=== PATIENT | male | born 1945 | race Caucasian/White ===

== ENCOUNTER 2018-02-10 12:18 | Emergency (ER) | payer OTHER, MEDICARE ==
--- NOTE | 2018-02-10 13:07 | EDPHY ---
H & P Time Seen by Provider: 02/10/18 12:52 HPI/ROS: CHIEF COMPLAINT: Urinary retention, urinary incontinence HISTORY OF PRESENT ILLNESS: Patient is a 73-year-old male who presents emergency department with urinary incontinence. Patient's recent history is he returned from [facility] on 01/29/2018. 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 Patient states that his diarrhea symptoms resolved and he felt better. However, he has continued to have slight urinary incontinence. He states this primarily occurs at night. He is able to urinate when he goes to the bathroom. He has had no dysuria frequency. No hematuria. The patient saw Dr. Barkley from Urology yesterday. The at that time he was told that he had urinary retention. He was sent home. The patient is unaware his current treatment plan for urinary incontinence. He subsequently came to the emergency department for evaluation. Patient has no fevers or chills. No abdominal pain. No nausea or vomiting. Patient states he has a remote history of prostate cancer. Dr. Barkley was made aware yesterday. REVIEW OF SYSTEMS: 10 systems were reveiwed and are negative with the exception of the elements mentioned in the history of present illness. Past Medical/Surgical History: Includes a remote history of prostate cancer, diabetes, gout Smoking Status: Former smoker Physical Exam: 36.8, 160/110, 109, 18, 95% on room air GENERAL: Well-appearing, in no acute distress, alert. HEENT: Eyes normal to inspection, normal pharynx, no signs of dehydration. NECK: Normal, supple. RESPIRATORY: Clear to auscultation bilaterally, no rales, rhonchi or wheezing. CVS: Regular rate and rhythm, no rubs, murmurs, or gallops. ABDOMEN: Soft, nontender, patient has a palpable bladder, no organomegaly. BACK: Normal to inspection, no CVA tenderness. SKIN: Normal color, no rash, warm, dry. No pallor. EXTREMITIES: No pedal edema, no calf tenderness, no Homans sign or cords, no joint swelling. NEURO/PSYCH: Alert and oriented, normal mood and affect, normal motor sensory exam. Constitutional: Initial Vital Signs Temperature (C) 36.8 C 02/10/18 12:19 Heart Rate 109 H 02/10/18 12:19 Respiratory Rate 18 02/10/18 12:19 Blood Pressure 162/110 H 02/10/18 12:19 O2 Sat (%) 95 02/10/18 12:19 O2 Delivery Mode Room Air Allergies/Adverse Reactions: midazolam [From Versed] Allergy (Verified 02/10/18 12:26) Home Medications: Medication Instructions Recorded Allopurinol 02/10/18 Anastrozole 02/10/18 Cephalexin [Keflex (*)] 500 mg PO QID #12 cap 02/10/18 Flomax 0.4 MG (*) 02/10/18 Metformin HCl 02/10/18 Naltrexone 02/10/18 Medical Decision Making ED Course/Re-evaluation: The in the emergency department I discussed possible etiologies with the patient. I answered all his questions. A urinalysis, urine microscopic exam and urine culture were sent. A post void urine revealed 507. Patient was noted to have red cells on his urine studies. Urine culture is pending. Patient will be given Keflex for 3 days. This will treat a possible diagnosis of urinary tract infection causing his symptoms. He understands his close follow-up with Urology. I discussed the results with the patient. I answered all his questions. Patient was given follow-up with Urology. He will return to the emergency department with inability to urinate or worsening incontinence. At this time I do not feel he needs of bladder paced. He is still able to urinate on demand. He has no significant discomfort. Differential Diagnosis: My differential includes but is not limited to urinary retention, incontinence, urinary tract infection, pyelonephritis, renal failure, sphincter dysfunction, prostate cancer, prostate enlargement, bladder cancer, mass - Data Points Laboratory Results: 02/10/18 12:41 Urine Color YELLOW Urine Appearance HAZY Urine pH 6.0 (5.0-7.5) Ur Specific [place] 1.009 (1.002-1.030) Urine Protein NEGATIVE (NEGATIVE) Urine Ketones NEGATIVE (NEGATIVE) Urine Blood NEGATIVE (NEGATIVE) Urine Nitrate NEGATIVE (NEGATIVE) Urine Bilirubin NEGATIVE (NEGATIVE) Urine Urobilinogen NEGATIVE EU EU (0.2-1.0) Ur Leukocyte Esterase NEGATIVE (NEGATIVE) Urine RBC 5-10 /hpf H /hpf (0-3) Urine WBC 1-3 /hpf /hpf (0-3) Ur Epithelial Cells NONE SEEN /lpf /lpf (NONE-1+) Urine Glucose NEGATIVE (NEGATIVE) Departure - Departure Disposition: Home, Routine, Self-Care Clinical Impression: Urinary retention Urinary incontinence Qualifiers: Urinary Incontinence type: unspecified incontinence Qualified Code(s): R32 - Unspecified urinary incontinence Condition: Good Instructions: Urinary Retention in Men (ED), Urinary Incontinence (ED) Additional Instructions: Return with increasing pain, inability urinate, fever, chills or any other concerns. Take your entire course of antibiotics. Referrals: Haley Masterson MD [Medical Doctor] - 5-7 days, call for appt. Prescriptions: Cephalexin [Keflex (*)] 500 mg PO QID #12 cap
[2018-02-10] MEDS ORDERED: CEPHALEXIN 500 MG CAP PO ONE (14:22)
[2018-02-10 14:56] VITALS: BP 165/118
== END 2018-02-10 14:53 | disposition home or self-care (01) ==
PROC: 4A0D7LZ Measurement of Urinary Volume, Via Natural or Artificial Opening (ICD-10-PCS; principal; 2018-02-10)
DX: R33.9 Retention of urine, unspecified (principal); R32 Unspecified urinary incontinence

== ENCOUNTER → 2018-02-21 | Outpatient (CLI) | payer OTHER, MEDICARE ==
[~2018-02-21] MED LIST: IOPAMIDOL (ISOVUE 370) 100 ML BTL IV ONE
== END ==
LOC: FIMAGING 13:26
PROVIDERS: ATTEND Surgery
DX: N32.9 Bladder disorder, unspecified (principal); N13.30 Unspecified hydronephrosis
CPT/HCPCS: 74176; Q9967; 82565-PO

== ENCOUNTER 2018-02-23 21:40 | Emergency (ER) | payer OTHER, MEDICARE ==
--- NOTE | 2018-02-23 22:32 | EDPHY ---
General - History Smoking Status: Former smoker Time Seen by Provider: 02/23/18 22:17 Narrative: CLINICAL IMPRESSION: Clogged Meza catheter ASSESSMENT/PLAN: 73-year-old male with history of prostate cancer presents to the emergency department with Meza catheter problem after he noted urine was not flowing this evening. Patient had catheter placed [address] Cramer. He did not have surgery at that time. He is scheduled to see Dr. Cramer on Monday and was told that his catheter was very difficult to place in that he could expect hematuria. Catheter was irrigated in the ER by ED RN. Patient has good flow of gross hematuria and his leg bag, no lower abdominal or pelvic pain or distention, vital signs stable, no fever. Patient was instructed to follow up with Urology on Monday as previously scheduled, warning signs return to emergency department sooner outlined and discharge. DIFFERENTIAL DX: Differential includes but not limited to clogged Meza catheter, UTI ED PROCEDURES: See lab and/or imaging results below See RN notes for Meza catheter irrigation ED COURSE: Fully catheterization was irrigated by ED RN, now working well, patient with 300 mL of gross hematuria noted in Meaz leg bag. He reports this is what he has been seeing at home and that his urologist is aware and instructed him that this is expected following his difficult catheter placement CHIEF COMPLAINT: Clogged Meza catheter HPI: 73-year-old male with a history of prostate cancer, followed by Dr. Cramer, presents to the emergency department with complaints of a clogged Meza catheter. Patient reports catheter was placed 2 days ago, today he noticed that the catheter was not draining appropriately. He states it was a very difficult catheter placement and he was told by his urologist to expect bloody discharge for many days. He reports no fevers, nausea, vomiting, flank pain. He did not have surgery. He states the catheter was placed due to"urine backing up into the kidneys and elevated creatinine". Meza was irrigated and is now draining appropriately and patient reports he feels much better. He has scheduled to see Dr. Cramer on Monday PAST MEDICAL HISTORY: Prostate cancer, previous bowel resection See triage summary and nurse notes for addition applicable history Pertinent Past Surgical History: Perforated bowel requiring bowel resection in 2010 Family History: Noncontributory Social History: , here with his REVIEW OF SYSTEMS: A full 10 point review of systems was negative except for those mentioned in HPI. PHYSICAL EXAM: General Appearance: Alert, oriented, appropriate, cooperative, NAD, well hydrated, non-toxic appearing, VSS, no hypoxia. Respiratory: There are no retractions, lungs are clear to auscultation. Cardiac: Regular rate and rhythm, no murmurs or gallops. Gastrointestinal: Abdomen is soft, nontender, bowel sounds normal, no masses/ hernia, no rigidity, guarding or focal peritoneal findings. Meza catheter in place with a leg bag. Gross hematuria noted in the back at approximately 250- 300 mL. No swelling or erythema of the urethra or glans. Skin: Warm, dry, no rashes, no nodules on palpation. MEDICAL DECISION MAKING: Patient was seen independently. Secondary supervising physician at time of evaluation was: Dr. Chaves . Diagnosis: Meza catheter problem . New, requires workup Summary: See Assessment and Plan for summary of ED visit Patient Progress: Improved. (Jamie Coughlin) PHYSICIAN DOCUMENTATION: The patient was evaluated and managed by the Physician Waste [employer] Pumper. My co- signature indicates that I have reviewed this chart and I agree with the findings and plan of care as documented. I am the secondary supervising physician. (Rosa Chaves) - Objective Vital Signs: Initial Vital Signs Temperature (C) 37.1 C 02/23/18 21:48 Heart Rate 100 02/23/18 21:48 Respiratory Rate 16 02/23/18 21:48 Blood Pressure 154/100 H 02/23/18 21:48 O2 Sat (%) 90 L 02/23/18 21:48 O2 Delivery Mode Room Air Allergies/Adverse Reactions: midazolam [From Versed] Allergy (Verified 02/10/18 12:26) Home Medications: Medication Instructions Recorded Allopurinol 02/10/18 Anastrozole 02/10/18 Metformin HCl 02/10/18 Naltrexone 02/10/18 Departure - Departure Disposition: Home, Routine, Self-Care Clinical Impression: Meza catheter problem Condition: Good Instructions: Meza Catheter Placement and Care (ED) Additional Instructions: DISCHARGE INSTRUCTIONS FROM YOUR DOCTOR Thank you for visiting our emergency department today. Please keep in mind that discharge from the emergency department does not mean that there is nothing wrong - it simply means that we have not identified an emergency condition that requires further evaluation or treatment in the hospital. You should always plan to follow up with primary care for re-evaluation of your condition in the next 2-3 days. If you have been referred to a specialist, please call as soon as possible (today or tomorrow) to schedule your follow up appointment at the appropriate time. YOUR MEZA CATHETER WAS IRRIGATED TONIGHT WITH SUCCESSFUL REMOVAL OF CLOTTED TISSUE. PLEASE MONITOR SYMPTOMS OVER THE WEEKEND. PLEASE FOLLOW-UP WITH UROLOGY SCHEDULED ON MONDAY. RETURN TO THE ER FOR COMPLICATIONS WITH MEZA CATHETER, INCREASED PELVIC OR ABDOMINAL PAIN, NAUSEA OR VOMITING, FEVER GREATER THAN 100.4, LIGHTHEADEDNESS, SHORTNESS OF BREATH, FAINTING EPISODES, OR ANY OTHER CONCERN. People present with illnesses and injuries in different ways, and it is always possible that we have missed something. You may always return for re-evaluation if symptoms worsen or if they are not improving or if you develop new/different symptoms. Again, thank you for choosing our emergency department. We hope that you feel better. Referrals: Marcos Cramer MD [Primary Care Provider] - 2-3 days, call for appt.
[2018-02-23 23:11] VITALS: BP 122/90
== END 2018-02-23 23:11 | disposition home or self-care (01) ==
PROC: 3E1K78Z Irrigation of Genitourinary Tract using Irrigating Substance, Via Natural or Artificial Opening (ICD-10-PCS; principal; 2018-02-23)
DX: T83.098A Other mechanical complication of other urinary catheter, initial encounter (principal); Y73.2 Prosthetic and other implants, materials and accessory gastroenterology and urology devices associated with adverse incidents

== ENCOUNTER 2018-03-10 14:08 | Inpatient (IN) | payer OTHER, MEDICARE ==
[2018-03-10 14:59] LABS: PLATELET COUNT 273 10^3/uL (150-400)
--- NOTE | 2018-03-10 15:00 | EDPHY ---
HPI/HX/ROS/PE/MDM Narrative: CHIEF COMPLAINT: Fever, weakness, "mental fog" HISTORY OF PRESENT ILLNESS: The patient is a 73 y/o male with a history of diabetes, prostate cancer, and a bowel resection complaining of fever, weakness, and "mental fog" since this morning. Patient has an indwelling nielsen due to prostate enlargement with obstructive hydronephrosis. He is scheduled to undergo a TURP this , 5 days from now. When his returned home at 16:00 yesterday, 23 hours ago, the patient was lethargic and sleeping. This morning when he woke up he had a fever of 101.8 degrees, chills, rapid breathing, and difficulty speaking. He also had one episode of diarrhea, which could be due to taking metformin for the first time in a week. Due to the difficulty speaking and "mental fog" his decided to bring the patient to the emergency department. The patient and his deny any history of cardiac problems. No chest pain, shortness of breath, palpitations, vomiting, headache, lightheadedness. REVIEW OF SYSTEMS: Aside from elements discussed in the HPI, a comprehensive 10-point review of systems was reviewed and is negative. 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 133HR, temp 37.6, 107/79 GENERAL: Slightly confused, well-developed and well-nourished. Slow to answer questions, difficulty telling me his history. HEENT: Atraumatic. Eyes: No icterus, no injection. PERRL, EOMI. Mouth: slightly dry mucous membranes. No erythema or lesions. Neck: supple with no adenopathy or meningismus. LUNGS: Clear to auscultation bilaterally, no wheezes, rhonchi or rales. CARDIAC: Tachycardic, no rubs, murmurs or gallops. ABDOMEN: Soft, nontender, nondistended, bowel sounds normal. BACK: No CVA tenderness. EXTREMITIES: No trauma. No edema. Range of motion is normal throughout. NEURO: Confused, alert and oriented, grossly nonfocal. SKIN: Warm and dry, no rash. PSYCHIATRIC: Normal mentation, no agitation. Portions of this note were transcribed by a medical driver. I personally performed a history, physical exam, medical decision making, and confirmed accuracy of information the transcribed note. ED Course: The patient is a 73 y/o male with a history of diabetes, prostate cancer, and a bowel resection presenting with fever, weakness, and "mental fog" since this morning. On exam the patient is confused and tachycardic. He has an indwelling nielsen. Due to his confusion he is unable to say why he's here. He denies belly or flank pain and has no meningismus. Labs, EKG, and chest x-ray ordered; 1gm PO Tylenol and 600mg PO Motrin administered. I have also discussed plan for admission which the patient and are comfortable with. 1530: I reviewed patient's labs which reveal a WBC of 28.93, lactate of 4.3, and a creatinine of 3.6 which has increased from 1.8 on 02/23/18. 1gm IV Ceftriaxone and IV NS administered per sepsis protocol. 1449: 12-LEAD EKG: Please see the full report in [facility]. My interpretation: Junctional tachycardia with a rate of 118, probable left ventricular hypertrophy, prolonged QT interval. 1547: I consulted with the hospitalist service regarding this patient, Dr. Foy accepts admission of this patient. Sepsis Evaluation: The patient presents to the ED with UTI identified as an acute infection. The patient did have evidence of end-organ dysfunction and met criteria for severe sepsis. This condition was identified by myself at 1509. The patients vital signs are 144/79, 38.0, 28, 117. The patient has a venous lactic acid performed within 3 hours of the identification of severe sepsis which was found to be 4.3. The patient has blood cultures drawn and received ceftriaxone IV, per the severe sepsis treatment protocol. The initial lactate was elevated and rechecked within 6 hours of the identification time of severe sepsis and found to be: 1.8. MDM: Differential diagnosis for fever in adults was considered including but not limited to pneumonia, urinary tract infection, cellulitis, urosepsis, meningitis , encephalitis, viral syndrome, and influenza. - Data Points Imaging Results: CXR: Impression: Poor inspiration. Otherwise, normal chest x-ray. Dictated By: Alvin Atkins MD Imaging: I viewed and interpreted images myself Laboratory Results: Laboratory Results 03/10/18 14:50 03/10/18 14:50 Medications Given: Acetaminophen (Tylenol) 650 mg PO Q4HRS PRN PRN Reason: Pain, Mild/Fever, Can Take PO Stop: 09/06/18 16:20 Last Admin: 03/13/18 18:27 Dose: 650 mg Heparin Sodium (Porcine) (Heparin Sc Injection) 5,000 unit SC Q8 JAYLA Stop: 09/06/18 21:59 Last Admin: 03/13/18 13:38 Dose: 5,000 unit Ertapenem 0.5 gm/ Sodium (Chloride) 50 mls @ 100 mls/hr IV DAILY JAYLA PRN Reason: Protocol Stop: 04/12/18 09:44 Last Admin: 03/13/18 10:11 Dose: 50 mls Insulin Human Lispro (Humalog Lispro) 0 unit SC TIDMEAL JAYLA PRN Reason: Protocol Stop: 09/06/18 17:59 Last Admin: 03/13/18 17:31 Dose: 2 units Miscellaneous Medication (Meth/Meblue/Sod Phos/Psal/Hyos [Uribel Capsule]) 1 each PO BID [facility] Stop: 09/06/18 20:59 Last Admin: 03/13/18 08:30 Dose: 1 tab Ondansetron HCl (Zofran) 4 mg IVP Q4HRS PRN PRN Reason: Nausea/Vomiting, Can't Take PO Stop: 09/06/18 16:20 Last Admin: 03/13/18 07:32 Dose: 4 mg Senna/Docusate Sodium (Senokot-S) 1 - 2 tab PO BID JAYLA PRN Reason: Protocol Stop: 09/08/18 20:59 Last Admin: 03/13/18 08:30 Dose: 2 tab Tamsulosin HCl (Flomax) 0.4 mg PO DAILY [facility] Stop: 09/07/18 08:59 Last Admin: 03/13/18 08:30 Dose: 0.4 mg Discontinued Medications Acetaminophen (Tylenol) 1,000 mg PO EDNOW ONE Stop: 03/10/18 15:12 Last Admin: 03/10/18 15:21 Dose: 1,000 mg Ceftriaxone Sodium/Dextrose (Rocephin 1 Gm (Premix)) 50 mls @ 100 mls/hr IV EDNOW ONE PRN Reason: Protocol Stop: 03/10/18 15:38 Last Admin: 03/10/18 15:20 Dose: 50 mls Sodium Chloride (Ns) 3,100 mls @ 6,200 mls/hr 30 ml/kg infuse over 30 min ( 3100 ml) IV EDNOW ONE PRN Reason: Protocol Stop: 03/10/18 15:38 Last Admin: 03/10/18 15:15 Dose: 3,100 mls Ceftriaxone Sodium/Dextrose (Rocephin 1 Gm (Premix)) 50 mls @ 100 mls/hr IV DAILY JAYLA PRN Reason: Protocol Stop: 04/10/18 08:59 Last Admin: 03/13/18 08:30 Dose: 50 mls Sodium Chloride (Ns) 1,000 mls @ 150 mls/hr IV CONT JAYLA Stop: 03/12/18 23:09 Last Admin: 03/12/18 17:42 Dose: 1,000 mls Levofloxacin/Dextrose (Levaquin 750 Mg (Premix)) 150 mls @ 100 mls/hr IV ONCE ONE PRN Reason: Protocol Stop: 03/11/18 16:47 Last Admin: 03/11/18 15:27 Dose: 150 mls Ibuprofen (Motrin) 600 mg PO EDNOW ONE Stop: 03/10/18 15:12 Last Admin: 03/10/18 15:20 Dose: 600 mg Point of Care Test Results: Chemistry 03/10/18 14:41 POC Glucose 225 mg/dL H mg/dL (70-100) Microbiology Results: MICROBIOLOGY 03/10/18 14:50 Blood Blood Culture - Preliminary Escherichia Coli Esbl 03/10/18 14:50 Urine,Catheterized Urine Culture - Preliminary Escherichia Coli 03/10/18 15:15 Blood Blood Culture - Final Escherichia Coli Esbl 03/10/18 15:15 Blood Blood Panel (PCR) - Final Escherichia Coli General Time Seen by Provider: 03/10/18 14:58 Initial Vital Signs: Initial Vital Signs Temperature (C) 37.6 C 03/10/18 14:23 Heart Rate 133 H 03/10/18 14:23 Respiratory Rate 18 03/10/18 14:23 Blood Pressure 107/79 03/10/18 14:23 O2 Sat (%) 93 03/10/18 14:23 O2 Delivery Mode Room Air O2 (L/minute) 2 Allergies/Adverse Reactions: midazolam [From Versed] Allergy (Verified 03/10/18 14:26) Anxiety/Confusion onion Allergy (Verified 03/10/18 14:26) Home Medications: Medication Instructions Recorded Allopurinol [Allopurinol 100 MG 100 mg PO DAILY 02/10/18 (*)] Anastrozole [Arimidex 1 mg (*)] 0.5 mg PO SUTH 02/10/18 Acetaminophen [Tylenol ES 500 mg 500 mg PO Q4 PRN 03/10/18 (*)] Metformin HCl [Metformin 1000 mg] 1,000 mg PO BIDMEAL 03/10/18 Meth/Meblue/Sod Phos/Psal/Hyos 1 each PO BID 03/10/18 [Uribel Capsule] Tamsulosin HCl [Flomax 0.4 MG (*)] 0.4 mg PO DAILY 03/10/18 Departure - Departure Disposition: [facility]patient Acute Clinical Impression: Severe sepsis, Confusion UTI (urinary tract infection) Qualifiers: Urinary tract infection type: catheter-associated UTI Indwelling urinary catheter type: unspecified Encounter type: initial encounter Qualified Code(s): T83.511A - Infection and inflammatory reaction due to indwelling urethral catheter, initial encounter Condition: Fair Report Scribed for: Odilia Chung Report Scribed by: Claudia Pompa Date of Report: 03/10/18 Time of Report: 15:01
[2018-03-10] MEDS ORDERED: NS 3,100 ML IV ONE (15:09)
[2018-03-10] MEDS ORDERED: IBUPROFEN 600 MG TAB PO ONE ×2 (15:11→15:22)
[2018-03-10] MEDS ORDERED: ACETAMINOPHEN 500 MG TAB PO ONE (15:11)
[2018-03-10] MEDS ORDERED: ACETAMINOPHEN 500 MG TAB ONE (15:22)
[2018-03-10 15:29] LABS: INR 1.25 (0.83-1.16); PROTIME(PATIENT) 15.9 SEC (12.0-15.0)
[2018-03-10] MEDS ORDERED: ONDANSETRON DISINTEGRATING 4 MG TAB PO PRN (16:21)
[2018-03-10] MEDS ORDERED: LIDOCAINE 2% JELLY 20 ML (UROJECT) ONE (17:27)
[2018-03-10] MEDS ORDERED: D50W 25 GM/50 ML SYR IVP PRN (17:54)
--- NOTE | 2018-03-10 18:36 | GHP ---
DATE OF ADMISSION: 03/10/2018 CHIEF COMPLAINT: Fever. HISTORY OF PRESENT ILLNESS: This is a 73-year-old male who several weeks ago started developing what ended up being significant urinary retention due to enlarged prostate. He has been following with Chica Cramer, and a Adams was placed a week ago. He is scheduled for a TURP next week. The initial abdo kim discomfort that started this workup is resolved, but then yesterday started developing fever an d altered mental status, and was sleeping essentially all day. This has worsened, and he presented t o the emergency department. He again denied any significant abdominal pain. No nausea or vomiting. He had decreased p.o. intake. Subjective fevers, feels weak. REVIEW OF SYSTEMS: A 10-point review of systems was obtained and negative. PAST MEDICAL HISTORY: 1. BPH as above. 2. Previous history of prostate cancer. 3. Type 2 diabetes. 4. Gout. MEDICATIONS: Reviewed. SOCIAL HISTORY: No smoking or alcohol. 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 He is . FAMILY HISTORY: Reviewed. Noncontributory. PHYSICAL EXAMINATION: VITAL SIGNS: Afebrile. Blood pressure is 107/78, heart rate initially was 13 0s. Has come down to the upper 90s. Oxygen saturation 94%. GENERAL: The patient is well developed , no apparent distress. HEENT: Nonicteric sclerae. Extraocular muscles intact. Dry mucous membran es. NECK: Supple. No thyromegaly. LUNGS: Good effort. Clear to auscultation bilaterally. CARDI OVASCULAR: Regular rate and rhythm. There is a 2/6 systolic murmur heard best at the right upper st ernal border. ABDOMEN: Positive bowel sounds. Some mild, diffuse tenderness. No rebound or guardi ng. EXTREMITIES: No clubbing, cyanosis, or edema. SKIN: Without rash. Dry, intact. NEUROLOGIC: Alert and oriented x3. Moving all 4 extremities equally. PSYCH: Normal affect. LABS: White blood cell count elevated at 28. Initial lactate was 4.3. It has now come down to 1.8. Chemistry does show an anion gap metabolic acidosis. Creatinine is elevated at 3.6, glucose elevate d to 14. UA is positive for a urinary tract infection. Chest x-ray negative. ASSESSMENT: This is a 73-year-old male presenting with severe sepsis due to urinary tract infection from indwelling Adams catheter. PLAN: 1. Severe sepsis. The patient has already received 3 L of fluid. His lactate has come down. We wi ll continue with hydration. 2. Complicated urinary tract infection. He has not really been on antibiotics. No history of resis tant organisms. We will start with ceftriaxone. We will change the Adams catheter as well. 3. Acute on possibly chronic renal failure. His creatinine early February was 2.0, but was normal in July of last year. There is definitely an element of sepsis that is contributing. We will see wher e his creatinine ends up with hydration. 4. Anion gap acidosis. Probably related to the renal failure and lactic acidosis. 5. Type 2 diabetes. We will start sliding scale and hold metformin due to acute renal failure. 6. Gout. I am going to hold his allopurinol as well. 7. BPH. We will continue his Flomax and Adams catheter. 8. DVT prophylaxis. We will use heparin. /[id number]/MODL
--- NOTE | 2018-03-10 21:01 | CPEKG ---
Test Reason : OPEN Blood Pressure : / mmHG Vent. Rate : 118 BPM Atrial Rate : 000 BPM P-R Int : 188 ms QRS Dur : 095 ms QT Int : 396 ms P-R-T Axes : 000 -06 048 degrees QTc Int : 556 ms Junctional tachycardia Probable left ventricular hypertrophy Prolonged QT interval Confirmed by Gentry Collazo ([id number]) on 03/10/2018 9:00:54 PM Referred By: PHYSICIAN ED Confirmed By:Gentry Collazo
[2018-03-10] MEDS: [UNRECOGNIZED DRUG - OTHER] PO SCH (22:02)
[2018-03-10] MEDS: INSULIN LISPRO 100 UNIT/ML SC SCH (22:03)
[2018-03-11] MEDS: HEPARIN 5,000 UNIT/0.5 ML INJ SC SCH ×4 (00:59→22:00)
[2018-03-11] MEDS: NS 1,000 ML IV SCH ×2 (00:59→13:46)
[2018-03-11 06:48] LABS: PLATELET COUNT 189 10^3/uL (150-400)
[2018-03-11] MEDS: INSULIN LISPRO 100 UNIT/ML SC SCH ×3 (09:24→18:28)
[2018-03-11] MEDS: TAMSULOSIN HCL 0.4 MG CAP PO SCH (09:28)
--- NOTE | 2018-03-11 09:36 | PDMN ---
Medical Necessity Medical necessity: [facility] M160 sepsis, A-3 days: 73 yo w/ nielsen in place due to urinary retention 2nd enlarged prostate, scheduled for TURP next week, presents w/ severe sepsis and TONY. Tachy 105-130, tachypnea w/ RR 22-40, WBC 28, creat 3.6. BC and urine Cx pending. Sepsis protocol started w/ IV antibx, IV fluids. Meets [facility] IP criteria for sepsis w/ hemodynamic instability, elevated creatinine and tachypnea.
--- NOTE | 2018-03-11 13:59 | HOSPPROG ---
Hospitalist Progress Note Assessment/Plan: Severe Sepsis - Febrile with leukocytosis on admission - Initial LA 4.3, downtrended to 1.8 after 30 cc/kg IVF bolus - Source UTI, positive UA on admission - Blood cultures growing GNR, await further speciation - Will continue on Ceftriaxone for now pending culture data - Continue IVF Acute on Chronic Renal Failure - Recent Cr 2.0, but was normal 07/2017 - Etiology unknown, prerenal in setting of sepsis vs. obstructive in setting of BPH - S/p IVF overnight, Cr remains at 3.6 this AM - Will continue IVF overnight - Continue to monitor I/O, Cr, avoid nephrotoxic agents - Renal U/S ordered to further evaluate Complicated UTI - Recent nielsen catheter placement on 02/21 by urology, Dr Cramer - Management of UTI as above - Nielsen replaced last night - Spoke with Urology this morning who had no further recommendations, will let Dr. Cramer know to reschedule TURP that was planned for Anion Gap Acidosis - In setting of sepsis and renal failure T2DM - Holding home Metformin - Continue SSI Gout - Holding allopurinol in setting of ARF BPH - Continue nielsen and Flomax DVT PPx: Heparin Dispo: Pending clinical course Subjective: Patient reports feeling somewhat improved from yesterday Objective: Vital Signs Temp Pulse Resp BP Pulse Ox 38.6 C H 92 40 H 123/67 H 94 03/11/18 08:00 03/11/18 08:00 03/11/18 08:00 03/11/18 08:00 03/11/18 08:00 Laboratory Results 03/11/18 06:20 03/11/18 06:20 03/10/18 03/11/18 03/12/18 05:59 05:59 05:59 Intake Total 7854 Output Total 2650 Balance 5204 PT 15.9 SEC (12.0-15.0) H 03/10/18 14:50 INR 1.25 (0.83-1.16) H 03/10/18 14:50 - Physical Exam Constitutional: uncomfortable Eyes: PERRL Ears, Nose, Mouth, Throat: moist mucous membranes Cardiovascular: regular rate and rhythym Respiratory: no respiratory distress Gastrointestinal: soft, non-tender abdomen Genitourinary: nielsen in urethra Musculoskeletal: generalized weakness Neurologic: AAOx3 Psychiatric: interacting appropriately ICD10 Worksheet Patient Problems: Problems Problem Status Onset Confusion Acute Severe sepsis Acute UTI (urinary tract infection) Acute
[2018-03-11] MEDS: [UNRECOGNIZED DRUG - OTHER] PO SCH ×2 (15:23→22:01)
--- NOTE | 2018-03-11 15:38 | GCON ---
PULMONARY/CRITICAL CARE CONSULTATION DATE OF CONSULTATION: 03/11/2018 REFERRING PHYSICIAN: Rodolfo Rutledge DO REASON FOR REFERRAL: Evaluation and management of gram-negative sepsis with urinary tract infection. HISTORY: The patient is a 73-year-old male who started developing urinary retention due to enlarged prostate. He was seen by Dr. Cramer who placed a Adams about a week ago and scheduled him for a TURP. This improved symptoms, but then yesterday, he started to develop fever and altered mental status. He was brought to the emergency department last night, where he was treated with IV fluids, antibiot ics, and admitted to the ICU. He reports stated he is feeling quite a bit better. He is no longer c onfused and his energy is improved. He had some clots from the Adams catheter. The Adams catheter w as pulled and replaced and now is draining well. PAST MEDICAL HISTORY: 1. BPH. 2. Prior history of prostate cancer. 3. Type 2 diabetes. 4. Gout. MEDICATIONS: Allopurinol, Arimidex, metformin, and Flomax. ALLERGIES: Midazolam. SOCIAL HISTORY: No smoking. The patient denies smoking or alcohol. He recently traveled to [facility] for a dive trip. At this time, he was diagnosed with infection with E coli, as well as amebiasis by a local physician. It is not clear that the diagnosis of any bypasses was supported by direct vis ualization, but rather through local medical techniques. FAMILY HISTORY: Unremarkable. REVIEW OF SYSTEMS: A 10-point review of systems adds nothing to the history of present illness. PHYSICAL EXAMINATION: GENERAL: Patient is awake, alert, and in no acute distress. VITAL SIGNS: Bl ood pressure is 123/67, up from 107/79 at admission. His heart rate is 92, down from 133 at admissio n. His temperature is 38.6. His oxygen saturations are 94% on 3 L. HEENT: Normocephalic and atrau matic. No icterus. NECK: No JVD. Trachea is midline. CHEST: Clear to auscultation. CARDIAC: R egular rate and rhythm without murmur. ABDOMEN: Soft, nontender. Bowel sounds are present. EXTREM ITIES: No clubbing, cyanosis, or edema. NEURO: The patient is awake and alert. He has no gross mo tor or sensory deficits. LABORATORY: Chemistry group is remarkable for a BUN of 38 and creatinine of 3.6. His creatinine was 1.8 two weeks ago and was 1.0 seven months ago. Glucose is 113. White blood count is 24.2, down fr om 28.9 yesterday. INR is 1.2. Lactate is 1.8, down from 4.3. Urinalysis shows 50 to 180 white blo od cells and 50-180 red blood cells with 3+ bacteria. Blood culture and urine culture both growing E coli, sensitivities pending. IMAGING PROCEDURE: Chest x-ray shows no focal infiltrates. Images reviewed by me. ASSESSMENT: 1. Severe sepsis. The patient had an elevated white blood count, fever, delirium, tachycardia, and an elevated lactate. He has responded to intravenous fluids, as well as ceftriaxone and sensitivitie s are pending. 2. Acute renal insufficiency. This is likely due to post obstructive uropathy, in addition to sepsi s/acute tubular necrosis. His urinary catheter became occluded with blood clots today and has been r eplaced, now with good urine flow. 3. History of diabetes. The patient's blood sugars initially were in 200s, but are now in the low 1 00s. 4. History of prostate cancer. RECOMMENDATIONS: 1. Continue sepsis protocol, including IV fluids and ceftriaxone. Consider adding Levaquin for cove rage until sensitivities are back. Infectious Disease and Urology will be consulted. 2. Follow urine output. His Adams catheter may potentially need to be replaced if he develops furth er bleeding. 3. Follow blood sugars, holding metformin for the time being and using sliding scale insulin as need ed. 4. Prophylactic heparin will be given. Increase activity as tolerated. /[id number]/MODL
[2018-03-11] MEDS: ACETAMINOPHEN 325 MG TAB PO PRN ×2 (15:48→23:14)
--- NOTE | 2018-03-11 18:16 | ASMTCMCOM ---
CM Note CM Note Notes: Reviewed chart, spoke with Dr. Rutledge. Pt admitted for a urinary tract infection, urosepsis and confusion following nielsen placement on 02/21/18 for a urinary obstruction. History includes prostate cancer, BPH, bowel resection 02/16/18, diabetes and gout. Pt is and lives with his in [place]. Discharge needs remain unclear at this time. Pt is scheduled for a TURP on 03/15/18. CM will continue to follow for any potential needs. Discharge Plan: To be determined Date Signed: 03/11/2018 06:16 PM Electronically Signed By:Elayne Vásquez RN
[2018-03-12] MEDS: HEPARIN 5,000 UNIT/0.5 ML INJ SC SCH ×3 (05:50→21:29)
[2018-03-12] MEDS: ACETAMINOPHEN 325 MG TAB PO PRN ×3 (07:24→21:27)
[2018-03-12] MEDS: INSULIN LISPRO 100 UNIT/ML SC SCH ×3 (07:56→17:40)
[2018-03-12] MEDS: NS 1,000 ML IV SCH ×2 (08:26→17:42)
[2018-03-12] MEDS: [UNRECOGNIZED DRUG - OTHER] PO SCH ×3 (08:26→21:50)
[2018-03-12] MEDS: TAMSULOSIN HCL 0.4 MG CAP PO SCH (08:27)
[2018-03-12 09:17] LABS: PLATELET COUNT 169 10^3/uL (150-400)
--- NOTE | 2018-03-12 12:19 | HOSPPROG ---
Hospitalist Progress Note Assessment/Plan: Severe Sepsis - Febrile with leukocytosis on admission - Initial LA 4.3, downtrended to 1.8 after 30 cc/kg IVF bolus - Source UTI, positive UA on admission - Blood cultures growing E Coli, await sensitivities - Will continue on Ceftriaxone for now pending culture data - ID consulted this morning - Continue IVF E Coli Bacteremia - Blood cultures positive for GNR, Ecoli - Continue Ceftriaxone for now - ID consulted this AM for further evaluation and management Acute on Chronic Renal Failure - Recent Cr 2.0, but was normal 07/2017 - Etiology unknown, prerenal in setting of sepsis vs. obstructive in setting of BPH - S/p IVF overnight, Cr downtrended to 3.2 this AM - Will continue IVF overnight - Continue to monitor I/O, Cr, avoid nephrotoxic agents - Renal U/S ordered yesterday which showed mild-moderate b/l hydronephrosis which is improved since prior CT - Consulted Urology, they said they will let Dr. Cramer know this AM Complicated UTI - Recent nielsen catheter placement on 02/21 by urology, Dr Cramer - Management of UTI as above - Nielsen replaced last night - Spoke with Urology yesterday who had no further recommendations, will let Dr. Cramer know to reschedule TURP that was planned for Anion Gap Acidosis - In setting of sepsis and renal failure T2DM - Holding home Metformin - Continue SSI Gout - Holding allopurinol in setting of ARF BPH - Continue nielsen and Flomax DVT PPx: Heparin Dispo: Pending clinical course Subjective: Patient reports feeling improved this AM Objective: Vital Signs Temp Pulse Resp BP Pulse Ox 37.4 C 81 16 126/76 H 94 03/12/18 11:52 03/12/18 11:52 03/12/18 11:52 03/12/18 11:52 03/12/18 11:52 Laboratory Results 03/12/18 08:30 03/12/18 05:55 03/11/18 03/12/18 03/13/18 05:59 05:59 05:59 Intake Total 7854 7150 Output Total 2650 5200 Balance 5204 1950 PT 15.9 SEC (12.0-15.0) H 03/10/18 14:50 INR 1.25 (0.83-1.16) H 01/26/19 14:50 - Physical Exam Constitutional: no apparent distress Eyes: PERRL Ears, Nose, Mouth, Throat: moist mucous membranes Cardiovascular: regular rate and rhythym Respiratory: no respiratory distress Gastrointestinal: soft, non-tender abdomen Genitourinary: nielsen in urethra Skin: warm Neurologic: AAOx3 Psychiatric: interacting appropriately ICD10 Worksheet Patient Problems: Problems Problem Status Onset Confusion Acute Severe sepsis Acute UTI (urinary tract infection) Acute
--- NOTE | 2018-03-12 13:51 | PDCONSULT ---
[facility] [employer] Note: Infectious Diseases Consult Note Impression: 73-year-old man with severe sepsis secondary to E coli pyelonephritis complicated by bloodstream infection. His syndrome is likely explained by the invasive E coli infection, with no exam or laboratory abnormalities to suggest a tropical illness underlying his acute presentation. In particular, shows no evidence of malaria infection, leptospirosis, or typhoid fever 3 of the acute life-threatening diseases that could be obtained in a tropical country. 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 1. Severe sepsis; improved 2. E coli bloodstream infection secondary pyelonephritis 3. E coli pyelonephritis secondary to obstructive uropathy 4. BPH underlying 3. 5. Diabetes mellitus, type 2 Plan: 1. Continue ceftriaxone 1 g daily 2. Deferred testing for tropical diseases pending clinical course; no clear syndrome present at this time 3. Discuss potential side effects of ceftriaxone Omar Garza MD Infectious Diseases Chief Complaint: Fever Requesting Provider: Dr. Rutledge Reason for Referral: Consultation was requested by Dr. Rutledge regarding antimicrobial management. HPI: A 73-year-old man presented to the emergency department with 1 day of altered mentation and high fever. He returned from a trip with his to [facility] on January 29 with a were engaged in a diving trip, staying with other divers at a resort with moderate mosquito activity, it [place]. He notes feeling unwell with "my inside being on fire" at the end of his trip and then upon [place] the [place] which was treated initially with a Z-Blade which he brought on the trip with him followed by a course of tinidazole prescribed by his physician [place] the [place]. 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 He notes that even during his time in [facility] he was suffering from bilateral flank pain, and some urinary incontinence. 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 He contacted his surgeon, Dr. Oneill, who ordered a abdominal CT which showed enlarged prostate, bilateral hydronephrosis, and severe diverticular disease. He had a Adams catheter placed to relieve the obstruction approximately 1 week prior to admission, with a planned TURP procedure scheduled for approximately a week later. Upon hospital admission he was found to have severe sepsis with increasing creatinine and an elevated lactate. He has grown E coli in both his urine and his blood. He continues to feel quite poorly in spite of antibiotic therapy. Overall his abdominal symptoms much improved. He notes no arthralgias or myalgias, no rash, no diarrhea, no headache, no jaundice. Travel history: Most recent history of travel to [facility] to 1 of the [facility] for 3 week diving trip from when she returned on January 29. Other international travel was to [facility] in July of 2017. He has traveled overall extensively in the more remote past including having lived in [place] near the [facility] in the 1970s. Past Medical History: BPH, type 2 diabetes treated with metformin, gout Past Surgical History: Sigmoid colectomy 2010 Social History: Lives with his who also travels with him. Does not smoke or drink alcohol. No illicit drug use. Family History: No history of recurrent infections. Allergies: Midazolam Medications: Reviewed in medical record and confirmed with patient. ROS: 10 organ systems reviewed; pertinent positives and negatives listed in the HPI, all other organ systems negative. Physical Exam: VS: Reviewed Gen: No acute distress; Breathing comfortably without exogenous oxygen; Able to speak in complete sentences Eyes: No conjunctival injection; No scleral icterus HENT: No gross deformities Neck: No limitation in range of motion Pulm: Breath sounds clear to the bases bilaterally; No wheeze, rhonchi, or rales CV: Normal S1 and S2; Regular rate and rhythm; No murmurs, rubs, or gallops; No lower extremity edema Abd: Obese; Not distended; hypo-active bowel sounds; Soft; Non-tender Skin: A full skin exam including bilateral upper extremities, bilateral lower extremities to the knees, face, neck, abdomen, chest, and back performed; Skin intact, warm, with no rash MSK: Joints without erythema or edema; No gross limitation in range of motion Ext: No clubbing or cyanosis Neuro: Awake and alert Psych: Normal mood and affect Labs/Imaging: All microbiology testing (culture and non-culture) reviewed in the medical record. Personally reviewed and interpreted the images of the following radiographs: Abdominal CT from February 21 showing bilateral hydronephrosis. Microbiology 03/10/18 15:15 Blood Blood Panel (PCR) - Final Escherichia Coli 03/10/18 14:50 Urine,Catheterized Urine Culture - Final Escherichia Coli 03/10/18 15:15 Blood Blood Culture - Preliminary 03/10/18 15:15 Blood Escherichia Coli 03/10/18 14:50 Blood Blood Culture - Preliminary Escherichia Coli Laboratory Tests 03/10/18 03/11/18 03/11/18 14:50 06:20 06:20 WBC 28.93 H 24.20 H Absolute Neuts (auto) 19.89 H Creatinine 3.6 H 03/12/18 03/12/18 05:55 08:30 WBC 12.67 H Absolute Neuts (auto) 10.43 H Creatinine 3.4 H Antimicrobials: Medications Generic Name Dose Route Start Last Admin Trade Name Freq PRN Reason Stop Dose Admin Ceftriaxone Sodium/Dextrose 50 mls @ 100 mls/hr 03/11/18 09:00 03/12/18 08:49 Rocephin 1 Gm (Premix) IV 04/10/18 08:59 50 mls DAILY JAYLA Protocol Discontinued Medications Generic Name Dose Route Start Last Admin Trade Name Freq PRN Reason Stop Dose Admin Levofloxacin/Dextrose 150 mls @ 100 mls/hr 03/11/18 15:18 03/11/18 15:27 Levaquin 750 Mg (Premix) IV 03/11/18 16:47 150 mls ONCE ONE Protocol Discontinued Medications Generic Name Dose Route Start Last Admin Trade Name Freq PRN Reason Stop Dose Admin Ceftriaxone Sodium/Dextrose 50 mls @ 100 mls/hr 03/10/18 15:09 03/10/18 15:20 Rocephin 1 Gm (Premix) IV 03/10/18 15:38 50 mls EDNOW ONE Protocol Ongoing monitoring for antimicrobial toxicity with: CBC, BMP. Sjwd-do-wmbo time with patient: 65 minutes with >50% of [id number]-wk-vwuw time spent in counseling, patient education, and coordinating care. Counseling provided included the microbiology of urinary tract infection, bloodstream infection, expected time to resolution, natural history without treatment, and side effects of treatment.
--- NOTE | 2018-03-12 17:12 | PDINTPN ---
Employment Consultant Progress Note Assessment/Plan: Assessment: Urosepsis secondary to E coli. Associated with renal obstruction and hydronephrosis from prostate obstruction. Resolving post Adams placement as an outpatient. On ceftriaxone. Id consultation appreciated. Sepsis. Resolving. Status post fluid resuscitation. Never significantly hypotensive. Acute renal failure. BUN and creatinine remain elevated, the latter at 3.6, slightly down from admission. Non-oliguric, with excellent urine output. Renal function is being followed. Constipation: Will add bowel protocol. Associated with anorexia. Sweats/temperature fluctuations. No elevated fever since yesterday. Likely secondary to 1. Doubt GI parasites, malaria, etc. Associated with his recent travel to [facility]. Diabetes. Glucose is well controlled. On sliding scale insulin. Prophylaxis: On subcu heparin. Will add pantoprazole as he is not eating much. Plan: Continue care in the intensive care unit on step-down status. Continue antibiotics. At bowel protocol. Continue insulin by sliding scale. Continue IV fluids. Encourage p.o. Intake as tolerated. Follow laboratory, BUN and creatinine, CBC. 35 min of critical care time spent directly with the patient. Discussed with the patient, the patient's , nursing, hospitalist, and the ICU multi disciplinary team. Subjective: Still with intermittent subjective temperatures swings, sweats. Not hungry. No BM. Objective: Vital Signs Temp Pulse Resp BP Pulse Ox 37.7 C 88 23 H 127/76 H 94 03/12/18 16:00 03/12/18 16:00 03/12/18 16:00 03/12/18 16:00 03/12/18 16:00 Laboratory Results 03/12/18 08:30 03/12/18 05:55 03/11/18 03/12/18 03/13/18 05:59 05:59 05:59 Intake Total 7854 7150 2000 Output Total 2650 5200 2350 Balance 5204 1950 -350 PT 15.9 SEC (12.0-15.0) H 03/10/18 14:50 INR 1.25 (0.83-1.16) H 03/10/18 14:50 Physical Exam - Physical Exam General Appearance: alert, no apparent distress EENT: PERRL/EOMI, other (On room air) Neck: normal inspection Respiratory: lungs clear, decreased breath sounds (At bases), No rales, No rhonchi Cardiac/Chest: regular rate, rhythm, No gallop Abdomen: normal bowel sounds, soft, distended, No non-tender (Minimally tender) Male Genitalia: other (Adams catheter in place. Good urine output) Skin: normal color, warm/dry Extremities: No pedal edema Neuro/Psych: no motor/sensory deficits, No cognition abnormalities ICD10 Worksheet Patient Problems: Problems Problem Status Onset Severe sepsis Acute UTI (urinary tract infection) Acute Confusion Acute
[2018-03-12] MEDS ORDERED: BISACODYL 10 MG SUPP PR PRN (17:20)
[2018-03-12] MEDS ORDERED: MAGNESIUM HYDROXIDE 30 ML UDCUP PO PRN (17:20)
[2018-03-12] MEDS ORDERED: LACTULOSE 20 GM/30 ML UDCUP PO PRN (17:20)
[2018-03-12] MEDS ORDERED: POLYETHYLENE GLYCOL 3350 17 GM PKT PO PRN (17:20)
[2018-03-12] MEDS: SENNOSIDES/DOCUSATE SODIUM TAB PO SCH (21:27)
[2018-03-12] MEDS: ONDANSETRON 4 MG/2 ML VIAL IVP PRN (21:37)
[2018-03-13] MEDS: HEPARIN 5,000 UNIT/0.5 ML INJ SC SCH ×3 (05:16→21:08)
[2018-03-13 06:14] LABS: PLATELET COUNT 184 10^3/uL (150-400)
[2018-03-13] MEDS: ONDANSETRON 4 MG/2 ML VIAL IVP PRN (07:32)
[2018-03-13] MEDS: INSULIN LISPRO 100 UNIT/ML SC SCH ×3 (08:01→17:31)
[2018-03-13] MEDS: ACETAMINOPHEN 325 MG TAB PO PRN ×4 (08:06→23:04)
[2018-03-13] MEDS: TAMSULOSIN HCL 0.4 MG CAP PO SCH (08:30)
[2018-03-13] MEDS: [UNRECOGNIZED DRUG - OTHER] PO SCH ×2 (08:30→21:06)
[2018-03-13] MEDS: SENNOSIDES/DOCUSATE SODIUM TAB PO SCH ×2 (08:30→21:07)
[2018-03-13] MEDS: ERTAPENEM 0.5 GM in NS 50 ML IV SCH (10:11)
--- NOTE | 2018-03-13 11:28 | PCMIDPN ---
Assessment/Plan: Assessment/Plan: * Severe sepsis due to E coli bacteremia of urinary etiology: E coli growing from blood cultures is showing ESBL production while E coli from urine does not although it is susceptibility profile is somewhat atypical. Have asked lab to repeat susceptibility profiles on both organisms. Will transition ceftriaxone to ertapenem based on identification of ESBL. Contact precautions have been initiated. Ertapenem is dose adjusted for patient's renal insufficiency to 500 mg IV daily. Continue to follow clinical course noting that it can take 3-5 days to see resolution of fever in this setting. * Recent international travel: Agree that current presentation unlikely related to tropical disease. Unclear if recent travel to [place] increases his risk for ESBL colonization or if this is unrelated given that approximately 3-5% of E coli isolates now have ESBL production in our community. Time spent, greater than 35 min, which greater than half was spent in education/ counseling/coordination of care related to severe sepsis with presence of ESBL producing E coli. 03/13/18 11:25 03/13/18 11:29 Subjective: Patient continues to feel poorly. Complains of ongoing symptoms of fever and chills. Overall feels improved versus time of presentation however. Objective: Vital Signs Temp Pulse Resp BP Pulse Ox 37.9 C 76 27 H 139/76 H 98 03/13/18 08:00 03/13/18 08:00 03/13/18 08:00 03/13/18 08:00 03/13/18 08:00 Laboratory Results 03/13/18 06:05 03/13/18 06:05 03/12/18 03/13/18 03/14/18 05:59 05:59 05:59 Intake Total 7150 5813 500 Output Total 8940 2013 950 Balance 1950 -212 -450 Blood cultures 2/2 E coli with ESBL production Urine culture with greater than 100,000 E coli which is susceptible to ceftriaxone and does not show presence of ESBL - Physical Exam General Appearance: alert, no apparent distress, non-toxic EENT: No scleral icterus, No thrush, No conjunctival petechiae Respiratory: lungs clear, No respiratory distress Cardiac/Chest: regular rate, rhythm, No systolic murmur Extremities: inflammation (Mild pain in right thigh along Adams catheter tract) Abdomen: non-tender, No distended Skin: No embolic lesions Neuro/Psych: No confused ICD10 Worksheet Patient Problems: Problems Problem Status Onset Confusion Acute Severe sepsis Acute UTI (urinary tract infection) Acute
--- NOTE | 2018-03-13 11:37 | PDINTPN ---
Packing Machine Inspector Progress Note Assessment/Plan: Assessment: Urosepsis secondary to E coli. Associated with renal obstruction and hydronephrosis from prostate. Resolved post Adams placement as an outpatient. ESBL coming up on BC...changed to Ertapenem per ID. Sepsis. Resolving. Status post fluid resuscitation. Never significantly hypotensive. Acute renal failure. BUN and creatinine started to improve, the latter at 2.7 today. Non-oliguric, with excellent urine output. Constipation: On bowel protocol. Still with anorexia. Sweats/temperature fluctuations. No elevated fever since yesterday. Likely secondary to 1. Doubt GI parasites, malaria, etc. associated with his recent travel to [facility]. Diabetes. Glucose is well controlled. On sliding scale insulin. Prophylaxis: On subcu heparin. Will add pantoprazole as he is not eating much. Plan: Continue care. Can transfer to a medical-surgical bed. Continue antibiotics per ID. Continue bowel protocol, insulin by sliding scale, IV fluids. Encourage p.o. Intake as tolerated. Follow laboratory, BUN and creatinine, CBC. 25 min of critical care time spent directly with the patient. Discussed with the patient, nursing, hospitalist, and the ICU multi disciplinary team. Subjective: Feels better overall. Slept better last night. Still with some fevers, chills , sweats. Objective: Vital Signs Temp Pulse Resp BP Pulse Ox 37.9 C 76 27 H 139/76 H 98 03/13/18 08:00 03/13/18 08:00 03/13/18 08:00 03/13/18 08:00 03/13/18 08:00 Laboratory Results 03/13/18 06:05 03/13/18 06:05 03/12/18 03/13/18 03/14/18 05:59 05:59 05:59 Intake Total 7150 5888 500 Output Total 5200 6100 950 Balance 1950 -212 -450 PT 15.9 SEC (12.0-15.0) H 03/10/18 14:50 INR 1.25 (0.83-1.16) H 03/10/18 14:50 ESBL in blood Laboratory Tests 03/13/18 06:05 Calcium 7.5 L Magnesium 1.9 Physical Exam - Physical Exam General Appearance: alert, no apparent distress, obese EENT: PERRL/EOMI, other (On room air currently, requiring 2 L of oxygen at night ) Neck: normal inspection (No JVD) Respiratory: lungs clear Cardiac/Chest: regular rate, rhythm Abdomen: normal bowel sounds, non-tender, soft, distended, other (Passing gas, no stool yet.) Male Genitalia: other (Adams catheter in place, good urine output) Skin: normal color, warm/dry Extremities: No pedal edema Neuro/Psych: no motor/sensory deficits, No cognition abnormalities ICD10 Worksheet Patient Problems: Problems Problem Status Onset Severe sepsis Acute UTI (urinary tract infection) Acute Confusion Acute
--- NOTE | 2018-03-13 12:47 | HOSPPROG ---
Hospitalist Progress Note Assessment/Plan: Severe Sepsis - Febrile with leukocytosis on admission - Initial LA 4.3, downtrended to 1.8 after 30 cc/kg IVF bolus - Source UTI, positive UA on admission - Blood cultures growing E Coli ESBL - ID recommends switching from ceftriaxone to Ertapenum for ESBL - Continue IVF ESBL E Coli Bacteremia - Blood cultures positive for ESBL E Coli - Switching to Ertapenum as above per ID - ID also having lab reculture urine and blood given that they are showing 2 different sensitivities Acute on Chronic Renal Failure - Recent Cr 2.0, but was normal 07/2017 - Etiology unknown, prerenal in setting of sepsis vs. obstructive in setting of BPH - S/p IVF overnight, Cr downtrended to 2.7 this AM - Will continue IVF - Continue to monitor I/O, Cr, avoid nephrotoxic agents - Renal U/S ordered which showed mild-moderate b/l hydronephrosis which is improved since prior CT - Consulted Urology, TURP that was scheduled for has been canceled Complicated UTI - Recent nielsen catheter placement on 02/21 by urology, Dr Cramer - Management of UTI as above - Nielsen replaced on admission Anion Gap Acidosis - In setting of sepsis and renal failure, resolved T2DM - Holding home Metformin - Continue SSI Gout - Holding allopurinol in setting of ARF BPH - Continue nielsen and Flomax DVT PPx: Heparin Dispo: Pending clinical course, OT recommending home care Objective: Vital Signs Temp Pulse Resp BP Pulse Ox 36.9 C 72 31 H 102/65 96 03/13/18 11:44 03/13/18 11:44 03/13/18 11:44 03/13/18 11:44 03/13/18 11:44 Laboratory Results 03/13/18 06:05 03/13/18 06:05 03/12/18 03/13/18 03/14/18 05:59 05:59 05:59 Intake Total 7150 5888 500 Output Total 5200 6100 950 Balance 1950 -212 -450 PT 15.9 SEC (12.0-15.0) H 03/10/18 14:50 INR 1.25 (0.83-1.16) H 03/10/18 14:50 ICD10 Worksheet Patient Problems: Problems Problem Status Onset Confusion Acute Severe sepsis Acute UTI (urinary tract infection) Acute
--- NOTE | 2018-03-13 16:42 | SOAPPROG ---
DUSTY Progress Note Assessment/Plan: Assessment: BPH with urinary obstruction Acute reviewed chart and consider TURP in future if ok per ID / hospitalist, scheduled tentatively for Plan: as noted 03/13/18 16:29 Subjective: retention and urosepsis Objective: Vital Signs Temp Pulse Resp BP Pulse Ox 37.3 C 77 27 H 126/66 H 99 03/13/18 15:42 03/13/18 15:42 03/13/18 15:42 03/13/18 15:42 03/13/18 15:42 Laboratory Results 03/13/18 06:05 03/13/18 06:05 03/12/18 03/13/18 03/14/18 05:59 05:59 05:59 Intake Total 7109 5811 2000 Output Total 5200 6100 2300 Balance 1950 -212 -300 PT 15.9 SEC (12.0-15.0) H 03/10/18 14:50 INR 1.25 (0.83-1.16) H 03/10/18 14:50 ICD10 Worksheet Patient Problems: Problems Problem Status Onset BPH with urinary obstruction Acute Confusion Acute Severe sepsis Acute UTI (urinary tract infection) Acute - ICD10 Problem Qualifiers (1) BPH with urinary obstruction
[2018-03-14] MEDS: ACETAMINOPHEN 325 MG TAB PO PRN ×3 (05:19→21:56)
[2018-03-14] MEDS: HEPARIN 5,000 UNIT/0.5 ML INJ SC SCH ×3 (05:20→21:57)
[2018-03-14] MEDS: INSULIN LISPRO 100 UNIT/ML SC SCH ×3 (09:05→21:33)
[2018-03-14] MEDS: ERTAPENEM 0.5 GM in NS 50 ML IV SCH (09:48)
[2018-03-14] MEDS: TAMSULOSIN HCL 0.4 MG CAP PO SCH (09:49)
[2018-03-14] MEDS: SENNOSIDES/DOCUSATE SODIUM TAB PO SCH ×2 (10:01→21:55)
[2018-03-14] MEDS: [UNRECOGNIZED DRUG - OTHER] PO SCH ×2 (10:20→21:56)
--- NOTE | 2018-03-14 14:25 | HOSPPROG ---
Hospitalist Progress Note Assessment/Plan: Severe Sepsis (temp, wbc's, elevated lactate) 2/2 UTI. E Coli ESBL bacteremia 2 /2 UTI. - Cont Ertapenem, ID following Complicated UTI - Recent nielsen catheter placement on 02/21 by urology, Dr Cramer. Nielsen replaced on admission. 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 Renal U/S w mild-mod b/l hydronephrosis which is improved since prior CT - Urology following, planning for TURP next week Anion Gap Acidosis- resolved DM type 2 - Holding home Metformin - Continue SSI Gout - Holding allopurinol in setting of ARF BPH - Continue nielsen and Flomax DVT PPx: Heparin Dispo: cont inpt, PT recommending SNF, CM following Subjective: Pt feels weak. He is worried about his recurrent fevers, thinks he could have malaria, after recent travel to [place]. No pain. Not having regular BM's Objective: Vital Signs Temp Pulse Resp BP Pulse Ox 36.9 C 79 18 124/80 H 93 03/14/18 11:25 03/14/18 11:25 03/14/18 11:25 03/14/18 11:25 03/14/18 11:25 Laboratory Results 03/14/18 04:47 03/14/18 04:47 03/13/18 03/14/18 03/15/18 05:59 05:59 05:59 Intake Total 5888 3638 Output Total 6100 5725 Balance -212 -2087 PT 15.9 SEC (12.0-15.0) H 03/10/18 14:50 INR 1.25 (0.83-1.16) H 03/10/18 14:50 - Physical Exam Constitutional: no apparent distress Eyes: PERRL Ears, Nose, Mouth, Throat: moist mucous membranes Cardiovascular: regular rate and rhythym Respiratory: no respiratory distress, clear to auscultation Gastrointestinal: normoactive bowel sounds, soft, non-tender abdomen Skin: warm Musculoskeletal: full muscle strength Neurologic: AAOx3 Psychiatric: interacting appropriately ICD10 Worksheet Patient Problems: Problems Problem Status Onset BPH with urinary obstruction Acute Confusion Acute Severe sepsis Acute UTI (urinary tract infection) Acute
--- NOTE | 2018-03-14 14:29 | PCMIDPN ---
Assessment/Plan: Assessment: 73-year-old man with severe sepsis secondary to ESBL producing E coli pyelonephritis with bacteremia. Ongoing fevers and chills which are likely related to less than ideal effectiveness of ceftriaxone with ESBL producing bacteria. Expect him to defervesce in the next 24 hours completely after the change to ertapenem, but continue to keep in mind the remote possibility of a non-falciparum malaria species. His anemia is mild and consistent with a systemic inflammatory response related to his typical bacterial infection. Although he has decreased total protein, albumin, and a slightly prolonged INR, he has no elevation in bilirubin that would be expected with an intra-erythrocytic parasite. He will require at least one week of ertapenem, potentially longer if he does not defervesce rapidly in the next day. Prostatic abscess also possible. 1. Ongoing fever; Likely related ESBL producing organism with decreased efficacy from ceftriaxone 2. ESBL-E coli bloodstream infection 3. ESBL-E coli pyelonephritis 4. TONY on CKD; Improved 5. Mild anemia; Likely inflammation related 6. BPH; Planned TURP next week 7. Diabetes mellitus, Type II Plan: 1. Continue ertapenem 500mg q24 hours 2. LDH added to next lab draw 3. Discussed potential side effects from ertapenem 4. Agree with delaying TURP until recovered from acute illness; Ideally would undergo procedure before completing ertapenem Omar Garza MD Infectious Diseases Subjective: Continues to have periodic fever with chills. Denies diarrhea, nausea, rash. Appetite improving but not back to normal. TURP will be delayed until next week. Objective: Vital Signs Temp Pulse Resp BP Pulse Ox 36.9 C 79 18 124/80 H 93 03/14/18 11:25 03/14/18 11:25 03/14/18 11:25 03/14/18 11:25 03/14/18 11:25 Laboratory Results 03/14/18 04:47 03/14/18 04:47 03/13/18 03/14/18 03/15/18 05:59 05:59 05:59 Intake Total 3295 7108 Output Total 1741 9515 Ygeymvp -350 -7901 Medications Generic Name Dose Route Start Last Admin Trade Name Freq PRN Reason Stop Dose Admin Ertapenem 0.5 gm/ Sodium 50 mls @ 100 mls/hr 03/13/18 09:45 03/14/18 09:48 Chloride IV 04/12/18 09:44 50 mls DAILY JAYLA Protocol Discontinued Medications Generic Name Dose Route Start Last Admin Trade Name Nicole PRN Reason Stop Dose Admin Levofloxacin/Dextrose 150 mls @ 100 mls/hr 03/11/18 15:18 03/11/18 15:27 Levaquin 750 Mg (Premix) IV 03/11/18 16:47 150 mls ONCE ONE Protocol Ceftriaxone Sodium/Dextrose 50 mls @ 100 mls/hr 03/11/18 09:00 03/13/18 08:30 Rocephin 1 Gm (Premix) IV 04/10/18 08:59 50 mls DAILY JAYLA Protocol Microbiology 03/10/18 15:15 Blood Blood Culture - Final 03/10/18 15:15 Blood Blood Panel (PCR) - Final Escherichia Coli Esbl Escherichia Coli 03/10/18 14:50 Blood Blood Culture - Final Escherichia Coli Esbl 03/10/18 14:50 Urine,Catheterized Urine Culture - Preliminary Escherichia Coli Laboratory Tests 03/13/18 03/13/18 03/14/18 06:05 06:05 04:47 WBC 9.61 H 11.67 H Hgb 12.5 L 12.4 L Plt Count 184 174 Creatinine 2.7 H 03/14/18 04:47 WBC Hgb Plt Count Creatinine 2.3 H - Physical Exam General Appearance: alert, no apparent distress, non-toxic EENT: No scleral icterus Respiratory: lungs clear, normal breath sounds, No respiratory distress, No crackles, No wheezing Neck: full range of motion, supple Cardiac/Chest: regular rate, rhythm, No bradycardia, No tachycardia, No diastolic murmur, No systolic murmur Extremities: normal inspection, No erythema Abdomen: non-tender, soft, No distended, No guarding Skin: normal color, warm/dry, No jaundice Neuro/Psych: alert, normal mood/affect, oriented x 3, No confused - Time Spent With Patient Time Spent with Patient: greater than 35 minutes Time Spent with Patient: Greater than 35 minutes spent on this patients care, greater than 50% of time spent counseling, educating, and coordinating care regarding the above mentioned plan. ICD10 Worksheet Patient Problems: Problems Problem Status Onset BPH with urinary obstruction Acute Confusion Acute Severe sepsis Acute UTI (urinary tract infection) Acute
--- NOTE | 2018-03-14 14:54 | ASMTCMCOM ---
CM Note CM Note Notes: Pt continues inpatient. At this time PT rec: SNF, OT rec: C. (pt refused PT today). Pt lives with . CM to follow. Plan: SNF Date Signed: 03/14/2018 02:53 PM Electronically Signed By:ELTON Molina
[2018-03-14] MEDS: ONDANSETRON 4 MG/2 ML VIAL IVP PRN (15:17)
--- NOTE | 2018-03-14 17:28 | SOAPPROG ---
SOAP Progress Note Assessment/Plan: Assessment: BPH with urinary obstruction Acute reviewed chart and consider TURP in future if ok per ID / hospitalist, Plan: as noted 03/14/18 17:27 Subjective: chills and sweats this AM Objective: Vital Signs Temp Pulse Resp BP Pulse Ox 37.4 C 74 18 137/86 H 90 L 03/14/18 15:40 03/14/18 15:40 03/14/18 15:40 03/14/18 15:40 03/14/18 15:40 Laboratory Results 03/14/18 04:47 03/14/18 04:47 03/13/18 03/14/18 03/15/18 05:59 05:59 05:59 Intake Total 4925 3631 Output Total 1249 5709 Balance -212 -2084 PT 15.9 SEC (12.0-15.0) H 03/10/18 14:50 INR 1.25 (0.83-1.16) H 03/10/18 14:50 Physical Exam - Physical Exam General Appearance: alert Respiratory: normal breath sounds, No respiratory distress Cardiac/Chest: regular rate, rhythm Abdomen: No guarding Male Genitalia: normal genitalia (nielsen in place) Back: No CVA tenderness Extremities: No calf tenderness, No Cristian's sign Neuro/Psych: oriented x 3 ICD10 Worksheet Patient Problems: Problems Problem Status Onset BPH with urinary obstruction Acute Confusion Acute Severe sepsis Acute UTI (urinary tract infection) Acute - ICD10 Problem Qualifiers (1) BPH with urinary obstruction
[2018-03-15] MEDS: HEPARIN 5,000 UNIT/0.5 ML INJ SC SCH ×2 (06:21→14:19)
[2018-03-15] MEDS: ERTAPENEM 0.5 GM in NS 50 ML IV SCH (09:22)
[2018-03-15] MEDS: SENNOSIDES/DOCUSATE SODIUM TAB PO SCH (09:28)
[2018-03-15] MEDS: TAMSULOSIN HCL 0.4 MG CAP PO SCH (09:28)
[2018-03-15] MEDS: [UNRECOGNIZED DRUG - OTHER] PO SCH (09:29)
[2018-03-15] MEDS: INSULIN LISPRO 100 UNIT/ML SC SCH ×3 (09:29→18:39)
--- NOTE | 2018-03-15 11:48 | PCMIDPN ---
Assessment/Plan: Assessment: 73-year-old man with severe sepsis secondary to ESBL producing E coli pyelonephritis with bacteremia. Fevers and chills have largely resolved after 3 days of ertapenem. No ongoing infectious signs to suggest pneumonia as a cause of oxygen requirement. He is able to utilize a peripheral IV for multiple days to receive once daily her ertapenem infusions in the infusion center once he does go home. 1. Ongoing fever; resolved; Likely related ESBL producing organism with decreased efficacy from ceftriaxone 2. ESBL-E coli bloodstream infection 3. ESBL-E coli pyelonephritis 4. TONY on CKD; Improved 5. Mild anemia; Likely inflammation related 6. BPH; Planned TURP next week 7. Diabetes mellitus, Type II Plan: 1. Continue ertapenem 500mg q24 hours; this will be continued for a minimum of 7 days, with earliest end date March 19, but will extend through TURP procedure if planned for later next week 2. Discussed potential side effects from ertapenem 3. Agree with delaying TURP until recovered from acute illness; Ideally would undergo procedure before completing ertapenem Omar Garza MD Infectious Diseases 03/15/18 11:43 Subjective: No fever or chills. Denies diarrhea, nausea, rash. Appetite improving but not back to normal. Still not feeling back to his normal self. He is requiring exogenous oxygen via nasal cannula to maintain oxygen saturations above 90%. He notes no cough. Objective: Vital Signs Temp Pulse Resp BP Pulse Ox 37.2 C 103 H 20 116/74 93 03/15/18 11:02 03/15/18 11:02 03/15/18 11:02 03/15/18 11:02 03/15/18 11:02 Laboratory Results 03/14/18 04:47 03/14/18 04:47 03/14/18 03/15/18 03/16/18 05:59 05:59 05:59 Intake Total 3633 305 Output Total 5748 6526 1000 [facility] -6367 -9584 -1000 Medications Generic Name Dose Route Start Last Admin Trade Name Freq PRN Reason Stop Dose Admin Ertapenem 0.5 gm/ Sodium 50 mls @ 100 mls/hr 03/13/18 09:45 03/15/18 09:22 Chloride IV 04/12/18 09:44 50 mls DAILY JAYLA Protocol - Physical Exam General Appearance: alert, no apparent distress, non-toxic EENT: No scleral icterus Respiratory: lungs clear, normal breath sounds, No respiratory distress, No crackles, No wheezing Neck: supple Cardiac/Chest: regular rate, rhythm, No bradycardia, No tachycardia, No diastolic murmur, No systolic murmur Extremities: normal inspection Abdomen: non-tender, soft, No guarding Skin: No rash Neuro/Psych: alert, oriented x 3, depressed affect - Time Spent With Patient Time Spent with Patient: greater than 35 minutes Time Spent with Patient: Greater than 35 minutes spent on this patients care, greater than 50% of time spent counseling, educating, and coordinating care regarding the above mentioned plan. ICD10 Worksheet Patient Problems: Problems Problem Status Onset BPH with urinary obstruction Acute Confusion Acute Severe sepsis Acute UTI (urinary tract infection) Acute
--- NOTE | 2018-03-15 13:42 | PDDCSUM ---
Discharge Summary Discharge Summary: HPI/Hospital course: 73-year-old man admitted with severe sepsis secondary to ESBL producing E coli pyelonephritis with bacteremia. Fevers and chills have largely resolved after 3 days of ertapenem. He is able to utilize a peripheral IV for multiple days to receive once daily her ertapenem infusions in the infusion center once he does go home. Continue ertapenem 500mg q24 hours; this will be continued for a minimum of 7 days, with earliest end date March 19, but will extend through TURP procedure if planned for later next week with Dr. Cramer. ID and Urology consulted. 1. Ongoing fever; resolved; Likely related ESBL producing organism with decreased efficacy from ceftriaxone 2. ESBL-E coli bloodstream infection 3. ESBL-E coli pyelonephritis 4. TONY on CKD; Improved. Cr trending down since nielsen placement (3.6-->2.4). Renal U/S w mild-mod b/l hydronephrosis which is improved since prior CT. Will need to have BMP rechecked next week 5. Mild anemia; Likely inflammation related 6. BPH; Planned TURP next week. cont nielsen. Cont Flomax 7. Diabetes mellitus, Type II: restart home meds 8. AG metabolic acidosis, resolved Exam: NAD AAOX3 RRR CTA B S/NT/ND MEDS: SEE MED REC F/U: WITH PCP NEXT WEEK WITH UROLOGY PLANNED WITH DR. CRAMER DAILY INFUSIONS FOR ABX ADMINISTRATION SCHEDULED TOTAL TIME SPENT ON D/C IS 35 MINS
--- NOTE | 2018-03-15 13:56 | PDIAF ---
- Diagnosis Diagnosis: ESBL-E coli bloodstream infection complicating pyelonephritis Code Status: Full Code - Medication Management [facility] Antibiotics: Ertapenem 500mg IV daily [employer] Antibiotic Stop Date: 03/22/18 (Patient receiving through peripheral IV) Additional Medication Instructions: Will arrange peripheral IV change in infusion clinic if needed. Discharge Medications: electronically signed and located in the Home Medication List. PICC Care - Routine: N/A - Orders Isolation Type: Contact Isolation Diet Recommendation: no restrictions on diet Diet Texture: Regular Texture Diet Additional Instructions: Activity: as tolerated f/u: with PCP next week with Urology, Dr. Cramer, as scheduled Daily antibiotics - Labs/Radiology Call or Fax Lab and Imaging Results to: No labs required. One week of IV therapy. - Follow Up Care Current Providers and Referrals: NONE *PRIMARY CARE P,. [Primary Care Provider] - As per Instructions Omar Garza MD [Medical Doctor] -
--- NOTE | 2018-03-15 14:02 | ASMTDCNOTE ---
Case Management Discharge Discharge Order Complete? Answers: Yes Patient to Obtain Answers: Other Notes: [employer] to deliver home Medications iv abx Transportation Arranged Answers: Family/Friends Faxed Final Orders Answers: Yes Notes: [facility] and [employer] Agency/Facility Transfer Answers: Yes Notes: [facility] and [facility] Report Printed & Faxed to Receiving Agency Discharge Comments Notes: 03/15/2018 Case Management Note Arranged IV abx through [employer]. Pt agreeable to co pay. 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 [facility] agreeable to peripheral iv. Faxed final orders to both agencies. Pt anticipating TURP procedure late next week. Case Management d/c poc: [facility] with [facility] RN Date Signed: 03/15/2018 02:01 PM Electronically Signed By:Radha Mann RN
--- NOTE | 2018-03-15 14:10 | ASDISCHSUM ---
Discharge Information Plan Status:Home with Home Health Medically Cleared to Leave:03/14/2018 Discharge Date:03/14/2018 CM D/C Disposition:Home Health Service ADT D/C Disposition:[id number] Projected Discharge Date:03/15/2018 11:00 AM Transportation at D/C:Family Discharge Delay Reason: Follow-Up Date:03/15/2018 11:00 AM Discharge Slot: Final Diagnosis: Placement Information Referral Type:Home Infusion Referral ID:[id number] Provider Name:[facility] Address 1:[address] Address 2: City:[place] Selection Factors: State:[place] Referral Type:*Home Health Care Services Referral ID:[id number] Provider Name:[facility] Address 1:[address] Address 2: City:[place] Selection Factors: State:[place] Patient Contact Information Contact Name:GEORGES Relationship: Address:[address] City:[facility] Phone: State/Zip Code:[place] [address] Email: Financial Information Financial Class:Medicare Primary Plan Desc:MEDICARE INPATIENT Primary Plan Number:[id number] Secondary Plan Desc:PETR/MDR SUPPLEMENT Secondary Plan Number:[id number] Assessment Information LACE LACE Length of stay for Answers: 4-6 days current admission Acuity / Level of Answers: Yes Care: Did the patient have an inpatient admission? Comorbidities - select Answers: Any tumor (including all that apply lymphoma or leukemia) Diabetes (uncontrolled or controlled) Other Notes: BPH, bowel resection, prostate CA, gout # of Emergency department Answers: 3-4 visits in the last 6 months Score: 14 Date Signed: 03/15/2018 02:09 PM Electronically Signed By:Radha Mann RN [facility] Progress Note CM Note CM Note Notes: Reviewed chart, spoke with Dr. Rutledge. Pt admitted for a urinary tract infection, urosepsis and confusion following nielsen placement on 02/21/18 for a urinary obstruction. History includes prostate cancer, BPH, bowel resection 02/16/18, diabetes and gout. Pt is and lives with his in [place]. Discharge needs remain unclear at this time. Pt is scheduled for a TURP on 03/15/18. CM will continue to follow for any potential needs. Discharge Plan: To be determined Date Signed: 03/11/2018 06:16 PM Electronically Signed By:Elayne Vásquez RN [facility] Progress Note CM Note CM Note Notes: Pt continues inpatient. At this time PT rec: SNF, OT rec: [facility]. (pt refused PT today). Pt lives with . CM to follow. Plan: [facility] Date Signed: 03/14/2018 02:53 PM Electronically Signed By:ELTON Molina Case Management Discharge Plan Note Case Management Discharge Discharge Order Complete? Answers: Yes Patient to Obtain Answers: Other Notes: [employer] to deliver home Medications iv abx Transportation Arranged Answers: Family/Friends Faxed Final Orders Answers: Yes Notes: [facility] and [facility] Agency/Facility Transfer Answers: Yes Notes: [facility] and [facility] Report Printed & Faxed to Receiving Agency Discharge Comments Notes: 03/15/2018 Case Management Note Arranged IV abx through [employer]. Pt agreeable to co pay. 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 [facility] agreeable to peripheral iv. Faxed final orders to both agencies. Pt anticipating TURP procedure late next week. Case Management d/c poc: [facility] with [facility] RN Date Signed: 03/15/2018 02:01 PM Electronically Signed By:Radha Mann RN Intervention Information
--- NOTE | 2018-03-15 14:18 | PDIAF ---
- Diagnosis Diagnosis: ESBL-E coli bloodstream infection complicating pyelonephritis Code Status: Full Code - Medication Management [facility] Antibiotics: Ertapenem 1000mg IV daily [facility] Antibiotic Stop Date: 03/22/18 (Patient receiving through peripheral IV) Additional Medication Instructions: Will arrange peripheral IV change in infusion clinic if needed. Discharge Medications: electronically signed and located in the Home Medication List. PICC Care - Routine: N/A - Orders Isolation Type: Contact Isolation Diet Recommendation: no restrictions on diet Diet Texture: Regular Texture Diet Additional Instructions: Activity: as tolerated f/u: with PCP next week with Urology, Dr. Cramer, as scheduled Daily antibiotics - Labs/Radiology Call or Fax Lab and Imaging Results to: No labs required. One week of IV therapy. - Follow Up Care Current Providers and Referrals: Omar Garza MD [Medical Doctor] - NONE *PRIMARY CARE P,. [Primary Care Provider] - As per Instructions
--- NOTE | 2018-03-15 14:28 | PDIAF ---
- Diagnosis Diagnosis: ESBL-E coli bloodstream infection complicating pyelonephritis Code Status: Full Code - Medication Management Long-Term Antibiotics: Ertapenem 1000mg IV daily Long-Term Antibiotic Stop Date: 03/22/18 (Patient receiving through peripheral IV) Additional Medication Instructions: Will arrange peripheral IV change in infusion clinic if needed. Discharge Medications: electronically signed and located in the Home Medication List. PICC Care - Routine: N/A - Orders Isolation Type: Contact Isolation Diet Recommendation: no restrictions on diet Diet Texture: Regular Texture Diet Additional Instructions: Activity: as tolerated follow up: with PCP next week with Urology, Dr. Cramer, as scheduled Daily antibiotics - Labs/Radiology Call or Fax Lab and Imaging Results to: No labs required. One week of IV therapy. - Follow Up Care Current Providers and Referrals: NONE *PRIMARY CARE P,. [Primary Care Provider] - As per Instructions Omar Garza MD [Medical Doctor] - 03/22/18 2:00 am
[2018-03-15 15:41] VITALS: BP 130/74
--- NOTE | 2018-03-19 14:36 | PQFORM ---
PHYSICIAN QUERY FORM Needs Your Response This query form is being sent to you to assure this patient record is coded properly. Please respond to the question below: AGENCY OWNER QUESTION: Dear Dr. Mora, Dr. Dawn mentions in his consultation that the patient had 'post obstructive uropathy, in addition to sepsis/acute tubular necrosis. Based on the clinical findings and your professional opinion, did this patient have acute tubular necrosis and can this diagnosis be added to the discharge summary? yes no ___x___ other unknown Thank you for clarifying, PATRIC Ramírez HIM Coding INSTRUCTIONS FOR RESPONSE: Answer question by clicking on the "Edit Document" button. Move cursor to area below the stars. When complete, hit "Save." Click on the "Sign" button, then click "Sign" again. Type in your PIN and hit "Enter." MTDD
== END 2018-03-15 20:53 | disposition home health service (06) | DRG 872 ==
LOC: F2N 17:01 → F3E 03-13 18:38
PROVIDERS: ADMIT Internal Medicine; ATTEND Family Medicine
DX: A41.51 Sepsis due to Escherichia coli [E. coli] (principal); R65.20 Severe sepsis without septic shock; N17.9 Acute kidney failure, unspecified; N18.9 Chronic kidney disease, unspecified; N13.6 Pyonephrosis; E87.2 Acidosis; N13.8 Other obstructive and reflux uropathy; E11.22 Type 2 diabetes mellitus with diabetic chronic kidney disease; D64.9 Anemia, unspecified; N40.1 Benign prostatic hyperplasia with lower urinary tract symptoms; Z79.84 Long term (current) use of oral hypoglycemic drugs; M10.9 Gout, unspecified; K59.00 Constipation, unspecified
CPT/HCPCS: 96365; 97116-GP; 97161-GP; 97165-GO; 97530-GO; 97535-GO; J0696; J1335; J1644; J1815; J1956; J2405

== ENCOUNTER 2018-03-15 07:15 | Observation (INO) | payer OTHER, MEDICARE ==
--- NOTE | 2018-03-21 08:59 | GHP ---
[f rep st] PREOP HISTORY AND PHYSICAL PATIENT NAME: Chris Mann DATE OF : 1945 ADMISSION DIAGNOSIS: Urinary retention. HISTORY OF PRESENT ILLNESS: This is a 73-year-old gentleman, who has been known to have prostate can cer. He has been on active surveillance, but it has not been very active. He recently had been out of the country, developed urinary retention. We have been unable to get his catheter removed. We di scussed self-intermittent cath and he has declined that. Then he has had an indwelling catheter, and he had a catheter placed on 02/21/2018. He developed hemorrhagic cystitis and pain, which was irrig ated. He had a cystoscopy and transrectal ultrasound on 02/26/2018. He also had a CT scan with Dr. Oneill and noted the issues at hand. MRI showed enlargement with local suggestion of prostate canc er, which was known. Had a single left-sided pelvic node 8 mm noted. The MRI measures his prostate being approximately 110 g. There was circumscribed 1.6 cm T2 hyperintense lesion of the left sacrum that was felt to represent a hemangioma. Urinary bladder had circumferential thickening. Impression is that he had a left peripheral zone enlargement secondary to possible acute prostatitis. It was s aid that this met the criteria for PI-RADS 4 lesion. He has also had a nonspecific 8 mm periprosthet ic lymph node and a prostatomegaly with estimated prostate volume of 110 g. He was scheduled to have the TURP, but that was canceled because he was admitted for sepsis related to the catheterization an d that was treated. He was discharged home at the end of his antibiotic course. It was elected to un dergo a TURP. PAST SURGICAL HISTORY: Cataract surgery, bowel resection, appendectomy. MEDICATIONS: Anastrozole, metformin, tramadol, Uribel. ALLERGIES: Versed. FAMILY HISTORY: Positive for prostate cancer and diabetes. SOCIAL HISTORY: Light consumption of alcohol. 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 Former smoker. REVIEW OF SYSTEMS: Negative cardiac, respiratory, GI, and endocrine. PHYSICAL EXAMINATION: VITAL SIGNS: Stable. CHEST: Clear. HEART: Regular rate and rhythm. ABDOM EN: Obesity noted. GENITALIA: Circumcised with meatal inflammation related to catheter. MRI of th e prostate will suffice for the prostate exam. PSYCH: He is oriented x3 with mood and affect being normal. At the present time, he is admitted for the TURP. He is well aware that he has had the diagnosis of prostate cancer, Raymond score 7, diagnosed in 09/21/2011, and by my history of PSAs that I could gle an, his PSA of 2009 was 5.8; 2010, 10.4; 2010 repeat was 5.2; and then 09/12/2017 of 6.7. He is awar e that the TURP is not the treatment for the condition of prostate cancer and future assessment evalu ation of that may be necessary based on the final pathology from the TURP specimen. Indication, comp lications, risks and options been discussed. He appears to be well informed. He is admitted for the above procedure. /[id number]/MODL
[2018-03-22] MEDS ORDERED: LR 1,000 ML IV ONE (11:56)
[2018-03-22] MEDS ORDERED: LIDOCAINE 2% JELLY 20 ML (UROJECT) ONE (12:39)
--- NOTE | 2018-03-22 13:04 | PDHPUP ---
History & Physical Update H&P update statement: This history and physical update is based on an assessment of the patient which was completed after admission or registration (within 24 hours), but prior to the surgery/procedure. H&P update: H&P reviewed & patient examined, no change in patient's condition since H&P completed
--- NOTE | 2018-03-22 13:25 | PDANEPAE ---
ANE Past Medical History - Cardiovascular History Hx Hypertension: No Hx Arrhythmias: No Hx Chest Pain: No Hx Coronary Artery / Peripheral Vascular Disease: No Hx CHF / Valvular Disease: No Hx Palpitations: No - Pulmonary History Hx COPD: No Hx Asthma/Reactive Airway Disease: No Hx Recent Upper Respiratory Infection: No Hx Oxygen in Use at Home: No Hx Sleep Apnea: No Sleep Apnea Screening Result - Last Documented: Negative - Neurologic History Hx Cerebrovascular Accident: No Hx Seizures: No Hx Dementia: No - Endocrine History Hx Diabetes: Yes Endocrine History Comment: CONTROLLED WITH METFORMIN AND EXERCISE - Renal History Hx Renal Disorders: Yes Renal History Comment: KIDNEY INJURY NOW RESOLVING - Liver History Hx Hepatic Disorders: No Hepatic History Comment: Hx of fatty liver - Neurological & Psychiatric Hx Hx Neurological and Psychiatric Disorders: No - Cancer History Hx Cancer: No - Congenital Disorder History Hx Congenital Disorders: No - GI History Hx Gastrointestinal Disorders: Yes Gastrointestinal History Comment: diverticulitis leading to bowel resection - Other Health History Other Health History: none - Chronic Pain History Chronic Pain: No - Surgical History Prior Surgeries: 2010 bowel resection. stem cell injection L5/SI ANE Review of Systems Review of Systems: - Exercise capacity METS (RN): 6 METS ANE Patient History - Allergies Allergies/Adverse Reactions: midazolam [From Versed] Allergy (Verified 03/20/18 14:49) Anxiety/Confusion onion Allergy (Verified 03/20/18 14:49) - Home Medications Home Medications: Allopurinol [Allopurinol 100 MG (*)] 100 mg PO DAILY 02/10/18 [Last Taken ] Anastrozole [Arimidex 1 mg (*)] 0.5 mg PO SUTH 02/10/18 [Last Taken 03/21/18] Acetaminophen [Tylenol ES 500 mg (*)] 500 mg PO Q4 PRN 03/10/18 [Last Taken 08/01] Metformin HCl [Metformin 1000 mg] 1,000 mg PO BIDMEAL 03/10/18 [Last Taken 03/21] Tamsulosin HCl [Flomax 0.4 MG (*)] 0.4 mg PO DAILY 03/10/18 [Last Taken 03/21/18 ] - NPO status NPO Since - Liquids (Date): 03/22/18 NPO Since - Liquids (Time): 10:40 NPO Since - Solids (Date): 03/21/18 NPO Since - Solids (Time): 23:00 - Smoking Hx Smoking Status: Former smoker - Family Anes Hx Family Hx Anesthesia Complications: brother has same issues with versed ANE Labs/Vital Signs - Vital Signs Blood Pressure: 120/77 Heart Rate: 101 Respiratory Rate: 16 O2 Sat (%): 97 Height: 170.18 cm Weight: 99.79 kg ANE Physical Exam - Airway Neck exam: decreased ROM Mallampati Score: Class 2 Mouth exam: normal dental/mouth exam - Pulmonary Pulmonary: no respiratory distress - Cardiovascular Cardiovascular: regular rate and rhythym - ASA Status ASA Status: II ANE Anesthesia Plan Anesthesia Plan: GA w LMA
[2018-03-22] MEDS ORDERED: LIDOCAINE 2% 2 ML INJ ONE (13:46)
[2018-03-22] MEDS ORDERED: fentaNYL 100 MCG/2 ML INJ ONE ×4 (13:46→16:20)
[2018-03-22] MEDS ORDERED: PROPOFOL 200 MG/20 ML VIAL ONE ×3 (13:47→14:16)
[2018-03-22] MEDS ORDERED: ONDANSETRON 4 MG/2 ML VIAL ONE (15:01)
[2018-03-22] MEDS ORDERED: DEXAMETHASONE 4 MG/ML VIAL ONE (15:01)
--- NOTE | 2018-03-22 15:19 | GOP ---
[f rep st] OPERATIVE REPORT DATE OF OPERATION: 03/22/2018 SURGEON: Marcos Cramer MD ANESTHESIA: General anesthesia. PREOPERATIVE DIAGNOSIS: Prostate cancer, BPH with urinary retention and urosepsis. POSTOPERATIVE DIAGNOSIS: Prostate cancer, BPH with urinary retention and urosepsis. PROCEDURE PERFORMED: Transurethral resection of the prostate. FINDINGS: DESCRIPTION OF PROCEDURE: Gentleman underwent general anesthesia, was prepped and draped in normal s terile fashion in dorsal lithotomy position after appropriate time-out. His catheter had been remove d, and dilated his ureter with a 34-Djiboutian and then was able to pass the resectoscope under direct vi jean pierre into the bladder, and the bladder had no tumor, stones or foreign bodies. At that point the TUR was begun, taking down the intravesical lobe and then the right lateral lobe, right portion of the p osterior lobe, left lateral lobe, left portion of the posterior lobe resected in a similar fashion. Bladder was Ellik'd free of all chips and clots. Visualization revealed no residual chips or clots. External sphincter approximated at the midline symmetrically. Verumontanum preserved. Then Uro-jet placed in the urethra and Adams catheter passed with a 90 cc balloon inflated, traction placed, irri gated clear. Specimen sent for pathology. COMPLICATIONS: None. He will be admitted for postoperative care. /[id number]/MODL
[2018-03-22] MEDS ORDERED: OPIUM/BELLADONNA ALKALO SUPP PR PRN (15:24)
[2018-03-22] MEDS ORDERED: HYDROCODONE/APAP 5/325 TAB PO PRN (15:24)
--- NOTE | 2018-03-22 15:24 | POSTOPPROG ---
Post Op Note Date of Operation: 03/22/18 (dictated) Surgeon: Marcos Cramer Anesthesia: LMA Pre-op Diagnosis: retention, bph, prostate cancer Procedure: turp Inf/Abcess present in the surg proc area at time of surgery?: No EBL: 50-100 Drains: Other (nielsen 90 ml balloon) Specimen(s): sent
[2018-03-22] MEDS ORDERED: morphINE PCA 30 MG/30 ML PCA IV PRN (15:26)
[2018-03-22] MEDS ORDERED: NALOXONE HCL 0.4 MG/ML INJ IVP PRN ×2 (15:26→16:04)
[2018-03-22] MEDS ORDERED: ACETAMINOPHEN 500 MG TAB PO PRN (15:31)
[2018-03-22] MEDS: fentaNYL 100 MCG/2 ML INJ IVP PRN ×4 (15:57→16:34)
[2018-03-22] MEDS ORDERED: LABETALOL HCL 5 MG/ML 20 ML MDV IVP PRN (16:04)
--- NOTE | 2018-03-22 16:04 | POSTANESTH ---
Post Anesthetic Evaluation Cardiovascular Status: Normal, Stable Respiratory Status: Normal, Stable Level of Consciousness/Mental Status: Can Participate in Eval Pain Control: Adequate, Prn Tx Ordered Nausea/Vomiting Control: Adequate, Prn Tx Ordered Complications Possibly Related to Anesthesia: None Noted
[2018-03-22] MEDS ORDERED: OPIUM/BELLADONNA ALKALO SUPP PR ONE (16:14)
[2018-03-22] MEDS ORDERED: PROMETHAZINE HCL 25 MG/ML INJ ONE (17:29)
[2018-03-22] MEDS: PROMETHAZINE HCL 25 MG/ML INJ IVP PRN ×3 (17:32→17:49)
[2018-03-22] MEDS: metFORMIN HCL 500 MG TAB PO SCH (18:49)
[2018-03-22] MEDS: oxyCODONE IR 5 MG TAB PO PRN ×2 (19:36→22:36)
[2018-03-22] MEDS: POTASSIUM Cl (KCl) 10 MEQ in D5W 1/2 NS 1,000 ML IV SCH (19:48)
[2018-03-23] MEDS: oxyCODONE IR 5 MG TAB PO PRN ×5 (01:48→14:50)
[2018-03-23] MEDS: POTASSIUM Cl (KCl) 10 MEQ in D5W 1/2 NS 1,000 ML IV SCH (03:40)
--- NOTE | 2018-03-23 07:43 | PDMN ---
Medical Necessity Medical necessity: Pt meets IP criteria as of 03/22/2018 per and [facility] S-970 ( TURP); est los > 2 mn for post op care s/p TURP as well as management of chronic conditions including BPH, prostate CA, DM II, gout, and recent urosepsis ,
[2018-03-23] MEDS: metFORMIN HCL 500 MG TAB PO SCH (08:09)
[2018-03-23] MEDS ORDERED: ALLOPURINOL 100 MG TAB PO SCH (09:00)
--- NOTE | 2018-03-23 09:05 | SOAPPROG ---
SOAP Progress Note Assessment/Plan: Assessment: BPH with urinary obstruction Acute POD #1 plan for nielsen removal and DC if pt voiding Plan: dc if pt voids 03/23/18 10:32 Subjective: doing well Objective: Vital Signs Temp Pulse Resp BP Pulse Ox 36.7 C 78 18 141/88 H 95 03/23/18 07:35 03/23/18 07:35 03/23/18 07:35 03/23/18 07:35 03/23/18 07:35 03/22/18 03/23/18 03/24/18 05:59 05:59 05:59 Intake Total 2670 1696 Output Total 450 950 Balance 2220 746 Physical Exam - Physical Exam General Appearance: alert Neck: supple Respiratory: No respiratory distress Cardiac/Chest: regular rate, rhythm Neuro/Psych: alert, oriented x 3 ICD10 Worksheet Patient Problems: Problems Problem Status Onset BPH with urinary obstruction Acute Confusion Acute Severe sepsis Acute UTI (urinary tract infection) Acute
[2018-03-23] MEDS ORDERED: ERTAPENEM 1 GM in NS 100 ML IV SCH (09:15)
[2018-03-23 09:53] LABS: PLATELET COUNT 397 10^3/uL (150-400)
--- NOTE | 2018-03-23 10:41 | ASMTLACE ---
LACE Length of stay for Answers: Less than 1 day current admission Acuity / Level of Answers: Yes Care: Did the patient have an inpatient admission? Comorbidities - select Answers: Any tumor (including all that apply lymphoma or leukemia) Score: 5 Date Signed: 03/23/2018 10:40 AM Electronically Signed By:Yodit Poe RN
--- NOTE | 2018-03-23 10:48 | ASMTCMCOM ---
CM Note CM Note Notes: Patient s/p TURP. Medically cleared for discharge to home. Routine office follow up. No CM needs at this time. CM available should needs arise. Plan: Dc to home no needs. Date Signed: 03/23/2018 10:47 AM Electronically Signed By:Yodit Poe RN
[2018-03-23 12:10] VITALS: BP 127/74
--- NOTE | 2018-03-23 15:29 | PDCONSULT ---
Programmer Developer Note: Infectious Diseases Consult Note Impression: 73-year-old man admitted for TURP which he underwent 1 day prior to this consultation without complication. He underwent this procedure at the tail end of treatment for ESBL producing E coli bacteremia with presumed source being pyelonephritis due to urinary tract outlet obstruction. He has no ongoing indication for ertapenem as all parameters are either normal or trending towards normal. 1. ESBL producing E coli bacteremia, resolved 2. Acute pyelonephritis with ESBL producing E coli, resolved 3. Leukocytosis, improved 4. Transaminase elevation, resolved 5. Bladder outlet obstruction underlying 1. And 2., resolved with TURP on Plan: 1. No further ertapenem indicated 2. Will repeat CBC with diff and CMP in 1 week 3. No ID Clinic follow-up unless new signs or symptoms of active infection occur Omar Garza MD Infectious Diseases Chief Complaint: Admitted for TURP while receiving antibiotic treatment for ESBL bloodstream infection Requesting Provider: Dr. Cramer Reason for Referral: Consultation was requested by Dr. Cramer regarding antimicrobial management. HPI: 73-year-old man who was admitted on 03/22/2018 to undergo planned TURP procedure. He underwent the procedure on the date planned without complication. He has now recovered to the point where he will be discharged today. He has now completed a total of 11 days of ertapenem after initially being treated with ceftriaxone, once the susceptibilities on the E coli isolate were returned. He has tolerated ertapenem without discernible side effects, including no diarrhea, no rash, and no nausea. He notes no other concerns today and states understanding that with this surgery resolution of his leukocytosis will be further delayed. Past Medical History: BPH, type 2 diabetes treated with metformin, gout Past Surgical History: Sigmoid colectomy 2010; TURP 03/22/2018 Social History: Lives with his who also travel with him. Does not smoke or drink alcohol. No illicit drug use. Family History: No recurrent infections Allergies: Midazolam Medications: Reviewed in medical record and confirmed with patient. ROS: 10 organ systems reviewed; pertinent positives and negatives listed in the HPI, all other organ systems negative. Physical Exam: VS: Reviewed Gen: No acute distress; Breathing comfortably without exogenous oxygen; Able to speak in complete sentences Eyes: No conjunctival injection; No scleral icterus HENT: No gross deformities Neck: No limitation in range of motion Skin: A full skin exam including exposed bilateral upper extremities, bilateral lower extremities to the knees, face, neck, abdomen, chest, and back performed; Skin intact, warm, with no rash MSK: Joints without erythema or edema; No gross limitation in range of motion Ext: No clubbing or cyanosis Neuro: Awake and alert Psych: Normal mood and affect Labs/Imaging: All microbiology testing (culture and non-culture) reviewed in the medical record. Personally reviewed and interpreted the images of the following radiographs: CT of the abdomen and pelvis from 03/20/2018 without contrast did not show any gross evidence for abscess or fluid collection. Medications Generic Name Dose Route Start Last Admin Trade Name Freq PRN Reason Stop Dose Admin Ertapenem 1 gm/ Sodium 100 mls @ 200 mls/hr 03/23/18 09:15 03/23/18 10:47 Chloride IV 04/22/18 09:14 100 mls DAILY [facility] Protocol Microbiology 03/10/18 15:15 Blood Blood Culture - Final 03/10/18 15:15 Blood Blood Panel (PCR) - Final Escherichia Coli Esbl Escherichia Coli 03/10/18 14:50 Urine,Catheterized Urine Culture - Final Escherichia Coli 03/10/18 14:50 Blood Blood Culture - Final Escherichia Coli Esbl Laboratory Tests 03/23/18 03/23/18 09:46 09:46 WBC 17.32 H Hgb 12.7 L Plt Count 397 Absolute Neuts (auto) 12.63 H Absolute Lymphs (auto) 3.37 H Creatinine 1.4 H ALT 39 Alkaline Phosphatase 78 Total Protein 6.0 L Albumin 3.3 L Ongoing monitoring for antimicrobial toxicity with: CBC, BMP. [id number]-ck-[id number] time with patient: 30 minutes with >50% of [id number]-ms-qayg time spent in counseling, patient education, and coordinating care. Counseling provided included the microbiology of ESBL producing E coli infections, expected time to resolution, natural history without treatment, and side effects of treatment.
[2018-03-25] MEDS ORDERED: ANASTROZOLE 1 MG TAB PO SCH (09:00)
== END 2018-03-23 16:02 | disposition home or self-care (01) ==
LOC: F1N 03-22 11:35 → INTOOBSV 03-22 11:35 → F1N 03-22 17:54
PROVIDERS: ADMIT Specialist; ATTEND Specialist
PROC: 0VT08ZZ Resection of Prostate, Via Natural or Artificial Opening Endoscopic (ICD-10-PCS; principal; 2018-03-22 13:30)
DX: N40.1 Benign prostatic hyperplasia with lower urinary tract symptoms (principal); R33.9 Retention of urine, unspecified; C61 Malignant neoplasm of prostate; R97.20 Elevated prostate specific antigen [PSA]; N41.0 Acute prostatitis; N13.8 Other obstructive and reflux uropathy; E11.9 Type 2 diabetes mellitus without complications; M10.9 Gout, unspecified; Z79.2 Long term (current) use of antibiotics; Z79.84 Long term (current) use of oral hypoglycemic drugs; Z87.891 Personal history of nicotine dependence; Z86.19 Personal history of other infectious and parasitic diseases; Z87.19 Personal history of other diseases of the digestive system; Z90.49 Acquired absence of other specified parts of digestive tract
CPT/HCPCS: 52601; 88305; J1100; J1335; J2270; J2405; J2550; J2704; J3010; J3480

== ENCOUNTER → 2018-03-20 | Outpatient (CLI) | payer OTHER, MEDICARE | LOC: FIMAGING 10:39 | PROVIDERS: ATTEND Internal Medicine Infectious Disease | DX: N40.0 Benign prostatic hyperplasia without lower urinary tract symptoms (principal) ==

== ENCOUNTER 2018-05-22 17:42 | Inpatient (IN) | payer OTHER, MEDICARE ==
[2018-05-22 18:22] LABS: PLATELET COUNT 218 10^3/uL (150-400)
[2018-05-22] MEDS ORDERED: ACETAMINOPHEN 325 MG TAB PO ONE (18:30)
[2018-05-22] MEDS ORDERED: NS 3,100 ML IV ONE (18:45)
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
[2018-05-22] MEDS ORDERED: ERTAPENEM 1 GM in NS 100 ML IV ONE (19:27)
[2018-05-22] MEDS ORDERED: ONDANSETRON DISINTEGRATING 4 MG TAB PO PRN (20:35)
[2018-05-22] MEDS ORDERED: ONDANSETRON 4 MG/2 ML VIAL IVP PRN (20:35)
--- NOTE | 2018-05-22 21:14 | CPEKG ---
Test Reason : OPEN Blood Pressure : / mmHG Vent. Rate : 111 BPM Atrial Rate : 112 BPM P-R Int : 000 ms QRS Dur : 100 ms QT Int : 367 ms P-R-T Axes : 000 -11 051 degrees QTc Int : 499 ms Sinus tachycardia Probable left ventricular hypertrophy Borderline prolonged QT interval Confirmed by Candace Lazaro ([id number]) on 05/22/2018 9:13:42 PM Referred By: CANDACE LAZARO Confirmed By:Candace Lazaro
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
[2018-05-22] MEDS: NS 1,000 ML IV SCH (21:55)
[2018-05-23] MEDS: ACETAMINOPHEN 325 MG TAB PO PRN ×4 (00:13→21:46)
[2018-05-23 04:35] LABS: PLATELET COUNT 193 10^3/uL (150-400)
[2018-05-23] MEDS: NS 1,000 ML IV SCH (06:09)
[2018-05-23] MEDS: ENOXAPARIN 40 MG/0.4 ML SYR SC SCH (08:59)
[2018-05-23] MEDS: PSYLLIUM METAMUCIL 1 PKT PO SCH (09:02)
[2018-05-23] MEDS: Bifidobacterium Infantis [Align] 4 MG PO SCH (09:20)
[2018-05-23] MEDS: Saccharomyces Boulardii [Florastor] 250 MG PO SCH ×2 (09:20→21:49)
[2018-05-23] MEDS: ALLOPURINOL 100 MG TAB PO SCH (09:20)
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
--- NOTE | 2018-05-23 11:29 | ASMTCMCOM ---
CM Note CM Note Notes: Pt is a 73 y/o man admitted for UTI and severe sepsis. Therapies have been ordered and awaiting recommendations. ID has been consulted. CM to follow. Plan: TBD Date Signed: 05/23/2018 11:28 AM Electronically Signed By:ELTON Kohler
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
[2018-05-23] MEDS ORDERED: D50W 25 GM/50 ML SYR IVP PRN (14:06)
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
[2018-05-23] MEDS: INSULIN LISPRO 100 UNIT/ML SC SCH (17:34)
[2018-05-23] MEDS ORDERED: ERTAPENEM 1 GM in NS 100 ML IV SCH (20:00)
[2018-05-23] MEDS ORDERED: ANASTROZOLE 1 MG TAB PO SCH (21:39)
[2018-05-23] MEDS: NALTREXONE 4.5 MG PO SCH (21:49)
[2018-05-24] MEDS: ENOXAPARIN 40 MG/0.4 ML SYR SC SCH (09:15)
[2018-05-24] MEDS: PSYLLIUM METAMUCIL 1 PKT PO SCH (09:16)
[2018-05-24] MEDS: INSULIN LISPRO 100 UNIT/ML SC SCH ×3 (09:21→17:59)
[2018-05-24] MEDS: ALLOPURINOL 100 MG TAB PO SCH (09:22)
[2018-05-24] MEDS: Saccharomyces Boulardii [Florastor] 250 MG PO SCH ×2 (09:22→21:30)
[2018-05-24] MEDS: Bifidobacterium Infantis [Align] 4 MG PO SCH (09:22)
[2018-05-24] MEDS: ACETAMINOPHEN 325 MG TAB PO PRN ×3 (09:31→21:48)
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
--- NOTE | 2018-05-24 14:58 | ASMTCMCOM ---
CM Note CM Note Notes: 05/24/2018 Case Management Note Discussed with hospitalist and RN today. PT has cleared for outpatient rehab. OT note states no follow up. Case Management d/c poc: independent with follow up as directed. Case Management to follow. Date Signed: 05/24/2018 02:58 PM Electronically Signed By:Radha Mann RN
[2018-05-24] MEDS ORDERED: FUROSEMIDE 20 MG/2 ML VIAL IVP ONE (15:50)
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
[2018-05-24] MEDS: NALTREXONE 4.5 MG PO SCH (21:29)
[2018-05-25 04:29] LABS: PLATELET COUNT 195 10^3/uL (150-400)
[2018-05-25] MEDS: ENOXAPARIN 40 MG/0.4 ML SYR SC SCH (08:52)
[2018-05-25] MEDS: PSYLLIUM METAMUCIL 1 PKT PO SCH (08:52)
[2018-05-25] MEDS: ALLOPURINOL 100 MG TAB PO SCH ×2 (08:52→08:54)
[2018-05-25] MEDS: INSULIN LISPRO 100 UNIT/ML SC SCH ×2 (08:53→12:14)
[2018-05-25] MEDS: Saccharomyces Boulardii [Florastor] 250 MG PO SCH (08:53)
[2018-05-25] MEDS: Bifidobacterium Infantis [Align] 4 MG PO SCH (08:53)
--- NOTE | 2018-05-25 10:35 | ECHO ---
[email or web address] [address] [address] Main: [phone] Echocardiography Examination Transthoracic Name: BLANCA LEE MR#: [id number] Study Date: 05/25/2018 Study Time: 09:08 AM Date of : 1945 Age: 73 year(s) Height: 170.2 cm (67 in.) Weight: 111.58 kg (246 lb.) BSA: 2.21 m2 Gender: Male Examination: Echo Contrast: Image Quality: Adequate Rhythm: Heart Rate: BP: 130 mmHg/89 mmHg Indication: Cardiac: syncope Procedure Staff Referring Physician: Sports Management Intern: Johanny Turner KIERA Reading Physician: Sanket Morocho MD Requesting Provider: Ordering Physician: Joaquin Mora Indication: Cardiac: syncope Hyperdynamic LV systolic function with an ejection fraction noted to be in excess of 70%. Asymmetric left ventricular hypertrophy predominantly affecting the interventricular septum. No regional wall motion abnormalities. Dynamic left ventricular outflow tract gradient with a resting left ventricular outflow tract gradient of 48 mmHg increasing to 102 mmHg post Valsalva. Mild mitral annular calcification with trivial to mild mitral regurgitation. Trileaflet aortic valve with mild aortic sclerosis. No stenosis or insufficiency. Mild tricuspid regurgitation. Normal estimated RVSP. Mildly dilated ascending aorta measuring 4.3 cm. Findings suggestive of hypertrophic cardiomyopathy. Measurements Chambers AV/MV Label Value Normal Value Label Value Normal Value LVDd, 2D 4.8 cm (4.2cm - 5.9cm) AV PGmean 4 mmHg LVDs, 2D 2.5 cm (2.1cm - 4cm) AV Vmax 1.37 m/s IVSd, 2D 1.8 cm (0.6cm - 1.1cm) MV E Vmax 0.76 m/s LVPWd, 2D 1.3 cm (0.6cm - 1cm) MV A Vmax 1.39 m/s LVEF, 2D 79 % (54% - 74%) MV E/A 0.55 LA Volume, BP 63 ml (18ml - 58ml) MV E/E' lateral 10.5 LADs, 2D 4.4 cm (3cm - 4cm) MV E/E' septal 14.4 (0.45 - 1.25) LAESV index, BP 28.5 ml/m2 MV E' septal 0.05 m/s Additional Vessels MV E' lateral 0.07 m/s Label Value Normal Value MV E/E' mean 12.67 AoAsc 3.8 cm MV E' mean 0.06 m/s AoRoot, MM 4.3 cm (2.2cm - 3.7cm) Patient: BLANCA LEE Study Date: 05/25/2018 Page 1 of 2 09:08 AM Findings Left Ventricle: E/a wave reversal.. Left ventricle is normal in size. Global hypercontractility of the left ventricle. EF range is estimated at 75 % - 80 %. There is moderate concentric left ventricular hypertrophy. There are no regional wall motion abnormalities. IVS: The septum is intact. Right Ventricle: Normal size right ventricle. Right ventricular wall thickness is normal. Right ventricular systolic function is normal. Left Atrium: The left atrium is normal in size. IAS: Atrial septal bowing from right to left. Right Atrium: The right atrium is normal in size. Mitral Valve: There is Chordal HUONG present. Mitral annulus calcification is present.. Trivial to mild mitral regurgitation. Aortic Valve: There is severe subaortic stenosis demonstrated with a valsalva maneuver with a PG of 102 mmHG.. No aortic valve regurgitation. The aortic valve is trileaflet. There is aortic sclerosis present. Tricuspid Valve: Tricuspid valve leaflets are normal in appearance and function. Trivial tricuspid regurgitation. No tricuspid valve stenosis. Pulmonary artery pressure normal. Pulmonic Valve: Pulmonic leaflets exhibit normal cuspal separation. No pulmonic valve regurgitation is evident. There is no pulmonic valve stenosis. Aorta: The aorta is normal. The aortic root size in M-mode measures 4.3 cm. The ascending aorta measures 3.8 cm. Aorta Measurements AoRoot, MM is 4.3 cm. Pulmonary Artery: The pulmonary artery morphology appears normal. IVC: The inferior vena cava is normal in size and course. Pericardium: No pericardial effusion. No pleural effusion present. Exam Details Procedure Ordered: Echo Procedure Status: Routine study Image Quality: Adequate Facility Location: Cardiac Echo 1 (No Signature Object) Patient: BLANCA LEE Study Date: 05/25/2018 Page 2 of 2 09:08 AM [id number]
--- NOTE | 2018-05-25 13:44 | PCMIDPN ---
Assessment/Plan: Assessment/Plan: * Fever with associated syncopal episode and recurrent urinary tract symptomatology in the setting of prior ESBL E coli bacteremia/UTI: Repeat urine culture shows multiple colony types without isolation of ESBL producing E coli. Symptoms now have resolved. Continue with plans for observation off antibiotics given negative blood cultures and urine culture findings. Discussed with patient to notify me if he has recurrent symptomatology at which point in time further evaluation could be undertaken. * Chronic leukocytosis: Overall improved with white blood cell count near normal. 05/25/18 13:41 Subjective: Patient feels significantly improved. Primary complaint is residual fatigue. No fever, chills or urinary tract symptomatology. Objective: Vital Signs Temp Pulse Resp BP Pulse Ox 36.7 C 86 10 L 136/98 H 95 05/25/18 11:19 05/25/18 11:19 05/25/18 11:19 05/25/18 11:19 05/25/18 11:19 Laboratory Results 05/25/18 03:25 05/25/18 03:25 05/24/18 05/25/18 05/26/18 05:59 05:59 05:59 Intake Total 2725 1350 500 Output Total 2975 2725 1000 Balance -250 -1375 -500 No antibiotic therapy Urine culture greater than 4 colony types consistent with normal urogenital maxx Blood cultures x2 no growth - Physical Exam General Appearance: alert, no apparent distress EENT: No scleral icterus, No conjunctival petechiae Respiratory: lungs clear, No respiratory distress Cardiac/Chest: regular rate, rhythm Abdomen: non-tender, No distended Back: No CVA tenderness - Time Spent With Patient Time Spent with Patient: greater than 25 minutes Time Spent with Patient: Greater than 25 minutes spent on this patients care, greater than 50% of time spent counseling, educating, and coordinating care regarding the above mentioned plan. ICD10 Worksheet Patient Problems: Problems Problem Status Onset Severe sepsis Acute UTI (urinary tract infection) Acute BPH with urinary obstruction Acute Confusion Acute
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
[2018-05-25 15:42] VITALS: BP 167/97
--- NOTE | 2018-05-25 15:58 | HOSPPROG ---
Hospitalist Progress Note Assessment/Plan: 73 yo male with recurrent UTI ESBL infection admitted with syncope with concerns for sepsis. It was initially assumed that the pt was septic given his hx of low grade fever and elevated lactic acid. However, BP was stable and elevated. He had mild Leukocytosis but has chronic elevated WBC. ID has been consulted and they recommend stopping abx. #Possible Sepsis -ID recommends not abx -Was treated with Ertapenem initially #Recurrent UTI, ESBL infection #Syncope: -felt to be due to sepsis physiology on admission but now given ID does not think infection was present -TTE shows concern for Hypertrophic Cardiomyopathy. He does not have any family hx. He has had a previous normal stress test. Dr. Morocho evaluated him today and has set him up for a stress test in one month. He does not need any new CV meds. He is being set up for a holter monitor but it is unclear if this will be ready today or tomorrow as he needs approval -carotid US: negative. #Pedal Edema -Lasix x 1 on 05/24 #NIDDM: holding Metformin, cont ISS #Trauma from syncope. Studies negative for acute fractures Plan: per above ISS PT/OT Lovenox for DVT proph Dispo: possible d/c today vs tomorrow pending Holter monitor approval Subjective: no cp or sob. feels better. echo pending Objective: Vital Signs Temp Pulse Resp BP Pulse Ox 36.7 C 92 19 167/97 H 91 L 05/25/18 15:41 05/25/18 15:41 05/25/18 15:41 05/25/18 15:41 05/25/18 15:41 Laboratory Results 05/25/18 03:25 05/25/18 03:25 05/24/18 05/25/18 05/26/18 05:59 05:59 05:59 Intake Total 2725 1350 500 Output Total 2975 2725 1000 Balance -250 -1375 -500 - Physical Exam Constitutional: no apparent distress Eyes: PERRL Ears, Nose, Mouth, Throat: moist mucous membranes Cardiovascular: regular rate and rhythym, No edema Respiratory: no respiratory distress, no rales or rhonchi, clear to auscultation Gastrointestinal: normoactive bowel sounds, soft, non-tender abdomen Skin: warm Neurologic: AAOx3 Psychiatric: interacting appropriately, not anxious, not encephalopathic Lymph, Heme, Immunologic: No petechiae ICD10 Worksheet Patient Problems: Problems Problem Status Onset Severe sepsis Acute UTI (urinary tract infection) Acute BPH with urinary obstruction Acute Confusion Acute
--- NOTE | 2018-05-25 16:47 | ASMTLACE ---
LACE Length of stay for Answers: 2 days current admission Acuity / Level of Answers: Yes Care: Did the patient have an inpatient admission? Comorbidities - select Answers: Diabetes (uncontrolled or all that apply controlled) # of Emergency department Answers: 3-4 visits in the last 6 months Score: 9 Date Signed: 05/25/2018 04:46 PM Electronically Signed By:Radha Mann RN
--- NOTE | 2018-05-25 16:50 | ASDISCHSUM ---
Discharge Information Plan Status:Home with No Needs Medically Cleared to Leave:05/25/2018 Discharge Date:05/25/2018 CM D/C Disposition:Home, Routine, Self-Care ADT D/C Disposition:Home, Routine, Self-Care Projected Discharge Date:05/25/2018 Transportation at D/C: Discharge Delay Reason: Follow-Up Date:05/25/2018 Discharge Slot: Final Diagnosis: Placement Information Patient Contact Information Contact Name:GEORGES Relationship: Address:[address] City:[place] Alternate Phone: [facility]/Zip Code:[place] [address] Email: Financial Information Financial Class:Commercial Primary Plan Desc:[facility] [employer] Primary Plan Number:[id number] Secondary Plan Desc:MEDICARE INPATIENT Secondary Plan Number:[id number] Assessment Information LACE LACE Length of stay for Answers: 2 days current admission Acuity / Level of Answers: Yes Care: Did the patient have an inpatient admission? Comorbidities - select Answers: Diabetes (uncontrolled or all that apply controlled) # of Emergency department Answers: 3-4 visits in the last 6 months Score: 9 Date Signed: 05/25/2018 04:46 PM Electronically Signed By:Radha Mann RN [facility] CM Progress Note CM Note CM Note Notes: Pt is a 73 y/o man admitted for UTI and severe sepsis. Therapies have been ordered and awaiting recommendations. ID has been consulted. CM to follow. Plan: TBD Date Signed: 05/23/2018 11:28 AM Electronically Signed By:ELTON Kohler [facility] CM Progress Note CM Note CM Note Notes: 05/24/2018 Case Management Note Discussed with hospitalist and RN today. PT has cleared for outpatient rehab. OT note states no follow up. Case Management d/c poc: independent with follow up as directed. Case Management to follow. Date Signed: 05/24/2018 02:58 PM Electronically Signed By:Radha Mann RN Case Management Discharge Plan Note Case Management Discharge Discharge Order Complete? Answers: Yes Patient to Obtain Answers: Independently Medications Discharge Comments Notes: 05/25/2018 Case Management Note Per RN pt to discharge with a one month monitor and follow up with cardiology. Case Management d/c poc: independent with follow up as directed. Date Signed: 05/25/2018 04:49 PM Electronically Signed By:Radha Mann RN Intervention Information
--- NOTE | 2018-05-25 17:30 | PDDCSUM ---
Discharge Summary Discharge Summary: HPI/HOSPITAL COURSE: 73 yo male with recurrent UTI ESBL infection admitted with syncope with concerns for sepsis. It was initially assumed that the pt was septic given his hx of low grade fever and elevated lactic acid. However, BP was stable and elevated. He had mild Leukocytosis but has chronic elevated WBC. ID has been consulted and they recommended stopping abx. He had an Echocardiogram which was concerning for Hypertrophic cardiomyopathy and therefore cardiology was consulted. Dr. Morocho saw the patient and felt that the pt could be d/c home with a stress test in one month which is being set up by their office. In addition, the pt will be placed on a Holter monitor. This could not be done today as it needed insurance approval. The pt was offered to stay overnight, obtain insurance approval, and d/c tomorrow. However the pt opted for dc tomorrow and he will coordinate the approval of the holter monitor. F/u: with PCP, with Cardiology, with ID #Possible Sepsis -ID recommends not abx -Was treated with Ertapenem initially, now discontinued. Per ID, there is no active infection #Recurrent UTI, ESBL infection #Syncope: -felt to be due to sepsis physiology on admission but now given ID does not think infection was present -TTE shows concern for Hypertrophic Cardiomyopathy. He does not have any family hx. He has had a previous normal stress test. Dr. Morocho evaluated him today and has set him up for a stress test in one month. He does not need any new CV meds. He is being set up for a holter monitor per above -carotid US: negative. #Pedal Edema -Lasix x 1 on 05/24 #NIDDM: holding Metformin, cont ISS #Trauma from syncope. Studies negative for acute fractures Meds: see med rec total time spent on d/c is 35 mins
== END 2018-05-25 17:40 | disposition home or self-care (01) | DRG 312 ==
LOC: EDUNIT# → F2W 21:10
PROVIDERS: ADMIT Internal Medicine; ATTEND Family Medicine
DX: R55 Syncope and collapse (principal); R50.9 Fever, unspecified; I42.2 Other hypertrophic cardiomyopathy; R07.89 Other chest pain; M25.541 Pain in joints of right hand; V48.0XXA Car driver injured in noncollision transport accident in nontraffic accident, initial encounter; Y92.414 Local residential or business street as the place of occurrence of the external cause; Y99.8 Other external cause status; Z87.440 Personal history of urinary (tract) infections; E11.9 Type 2 diabetes mellitus without complications; Z79.84 Long term (current) use of oral hypoglycemic drugs; M10.9 Gout, unspecified; Z85.46 Personal history of malignant neoplasm of prostate; Z87.891 Personal history of nicotine dependence
CPT/HCPCS: 84484-ER; 96374; 97116-GP; 97161-GP; 97165-GO; J1335; J1650; J1815; J1940

== ENCOUNTER → 2018-06-11 | Outpatient (CLI) | payer OTHER, MEDICARE | DX: R55 Syncope and collapse (principal) ==

== ENCOUNTER → 2018-07-03 | Outpatient (CLI) | payer OTHER, MEDICARE | LOC: EMCIMAGING 12:01 | PROVIDERS: ATTEND Physical Medicine & Rehabilitation | DX: M85.48 Solitary bone cyst, other site (principal) | CPT/HCPCS: 72192-PN ==